=== PATIENT | female | born 1945 | race Hispanic/Latino ===

== ENCOUNTER 2017-04-25 13:16 | Emergency (ER) | payer OTHER ==
[~2017-04-25 13:16] MED LIST: CARAFATE1 GM/10 ML PO; CEFTIN500 MG PO; DITROPAN XL5 MG PO; MACROBID 100 M100 MG PO; METFORMIN HCL500 MG PO; OMEPRAZOLE40 MG PO; PREVACID 24HR15 MG; TYLENOL WITH C1 EACH PO; ZANTAC150 MG PO; ZOFRAN ODT4 MG PO
== END 2017-04-25 14:33 | disposition short-term general hospital (02) ==
LOC: ER 13:16
DX: R10.9 Unspecified abdominal pain (principal)

== ENCOUNTER 2018-02-05 16:12 | Emergency (ER) | payer OTHER ==
[~2018-02-05] VITALS: Ht 154.9 cm; Wt 68.0 kg
--- OUTSIDE RECORDS SUMMARY | 2018-02-05 16:16 | XMS REPORT ---
Author Author [facility] Address Unknown Phone Unavailable Care Team Providers Care Marketing Communications Assistant Name Role Phone Unavailable Unavailable Payers Payer Name Policy Type Policy Number Effective Date Expiration Date Problems This patient has no known problems. Allergies, Adverse Reactions, Alerts Allergy Name Allergy Type Status Severity Reaction(s) Onset Date Inactive Date Treating Clinician Comments No Known Allergies DA Active U 2012-12-06 00:00:00 Medications This patient has no known medications. Results Test Description Test Time Test Comments Text Results Atomic Results Result Comments SCR MAMM BILATERAL BREANA CAD DIGITAL 2018-01-17 11:02:49 - SCR MAMM BILATERAL BREANA CAD DIGITALBILATERAL DIGITAL SCREENING MAMMOGRAM 3D/2D WITH CAD: 01/17/2018CLINICAL: Asymptomatic. Digital breast tomosynthesis was performed in addition to routine CC and MLO views. Current mammographic images were evaluated by either a [employer] M-Vu or a [employer] ImageChecker CAD (computer aided detection system). Comparison is made to exams dated 01/14/2017 mammogram, mammogram, and 12/31/2014 mammogram - [facility]. The tissue of both breasts is heterogeneously dense. This may lower the sensitivity of mammography. There is a benign calcification in both breasts. There also is a benign density in the right breast. Additionally, there are benign densities in the left breast. No suspicious mass, architectural distortion, malignant type calcification, or lymph node abnormality detected. Breast architecture is stable compared to prior exams.IMPRESSION: BENIGNThere is no mammographic evidence of malignancy. Resume annual screening mammography in one year. Braeden Ralph M.D. ss/mic:01/17/2018 11:02:49 Insect Control Aide: Anna Marie ALDANA, [facility] sent: BIRADS 1-2 Normal Mammogram BI-RADS: 2 Benign
[2018-02-05 16:41] LABS: BASOPHILS % 0.3 % (0.0-1.0); EOSINOPHILS # (AUTO) 0.2 (0.0-0.4); EOSINOPHILS % 2.5 % (0.0-6.0); HEMATOCRIT 40.8 % (34.2-44.1); HEMOGLOBIN 14.3 g/dL (12.0-16.0); LYMPHOCYTES # (AUTO) 3.3 (1.0-3.2); LYMPHOCYTES % 37.9 % (18.0-39.1); MEAN CORPUSCULAR HEMOGLOBIN 31.9 pg (28-32); MEAN CORPUSCULAR VOLUME 91.1 fL (81-99); MONOCYTES # (AUTO) 0.7 (0.2-0.8); MONOCYTES % 7.6 % (4.4-11.3); NEUTROPHILS # (AUTO) 4.5 (2.1-6.9); NEUTROPHILS % 51.2 % (38.7-80.0); PLATELET COUNT 189 x10e3/uL (140-360); RED BLOOD COUNT 4.48 x10e6/uL (3.6-5.1); RED CELL DISTRIBUTION WIDTH 12.7 % (11.7-14.4)
[2018-02-05 16:47] LABS: INR 0.85; PARTIAL THROMBOPLASTIN TIME 23.2 seconds (23.8-35.5); PROTHROMBIN TIME 12.4 seconds (11.9-14.5)
[2018-02-05 16:56] LABS: ALANINE AMINOTRANSFERASE 35 IU/L (0-55); ALBUMIN 3.9 g/dL (3.5-5.0); ALKALINE PHOSPHATASE 76 IU/L (40-150); ANION GAP 17.7 mmol/L (8-16); BLOOD UREA NITROGEN 20 mg/dL (7-26); BUN/CREATININE RATIO 27 (6-25); CALCIUM 9.9 mg/dL (8.4-10.2); CARBON DIOXIDE 21 mmol/L (22-29); CHLORIDE 106 mmol/L (98-107); CREATINE KINASE 45 IU/L (29-168); CREATININE, SERUM 0.75 mg/dL (0.57-1.11); EST GLOMERULAR FILTRATION RATE > 60 ML/MIN (60-); GLUCOSE 123 mg/dL (74-118); POTASSIUM 3.7 mmol/L (3.5-5.1); SODIUM 141 mmol/L (136-145)
[2018-02-05 17:23] LABS: BILIRUBIN,URINE NEGATIVE (NEGATIVE); CLARITY,URINE CLEAR (CLEAR); COLOR,URINE YELLOW (YELLOW); KETONES,URINE NEGATIVE (NEGATIVE); LEUKOCYTE ESTERASE ,URINE NEGATIVE (NEGATIVE); NITRITE,URINE NEGATIVE (NEGATIVE); PROTEIN,URINE DIPSTICK NEGATIVE (NEGATIVE); URINE UROBILINOGEN 1 mg/dL (0.2 - 1)
[2018-02-05 17:35] LABS: BACTERIA,URINE FEW /HPF; EPITHELIAL CELLS,URINE FEW /LPF
[2018-02-05 18:48] LABS: AMYLASE 37 U/L (25-125); LIPASE 23 U/L (8-78)
--- NOTE | 2018-02-05 19:41 | Diagnostic Imaging Report ---
EXAM: CT Abdomen and Pelvis WITH contrast INDICATION: Pain COMPARISON: 08/23/2016 CT, no report available TECHNIQUE: Abdomen and Pelvis was scanned utilizing a multidetector helical scanner after administration of IV contrast. Coronal and sagittal reformations were obtained. IV CONTRAST: 100 mL Isovue-370 COMPLICATIONS: None RADIATION DOSE: Total DLP:724 mGy*cm Estimated effective dose: (DLP x 0.015 x size factor) mSv CTDIvol has been reviewed. It is below the limits set by the Radiation Protocol Committee (RPC). Appropriate CT dose reduction techniques were utilized. FINDINGS: Abdomen: Lung Bases: No acute findings. Solid Organs: Cholecystectomy clips. Mild to moderate hepatic steatosis. Focal 16mm area of enhancement central liver unchanged, likely flash filled hemangioma. No acute findings adrenals, kidneys, spleen, splenule, and pancreas. Upper GI Tract: Decompressed stomach limits evaluation. No small bowel obstructive changes. Small hiatal hernia. Vascularity: No aortic aneurysm. Mild vascular calcifications. Lymph Nodes: No suspicious adenopathy. Other: No ventral wall hernia. Pelvis: Bladder: Unremarkable. Other: Uterus absent. Colon: Diverticulosis predominantly involving sigmoid colon with no CT evidence of diverticulitis. Postsurgical changes right colon. Bones: No acute findings. IMPRESSION: 1. Hepatic steatosis. 2. Diverticulosis. 3. Small hiatal hernia. Signed by: Dr. Edgardo Nunes MD on 02/05/2018 7:37 PM
--- NOTE | 2018-02-05 19:44 | Diagnostic Imaging Report ---
EXAM: XR CHEST 1 VIEW DATE: 02/05/2018 4:30 PM INDICATION: Pain COMPARISON: None FINDINGS: Lines and Tubes: None Heart and Mediastinum: No acute cardiomediastinal findings. Lungs and Pleura: No significant pleural effusion, pneumothorax, or focal consolidation. Bones and Soft Tissues: No acute findings. IMPRESSION: 1. No acute cardiopulmonary findings. Signed by: Dr. Edgardo Nunes MD on 02/05/2018 7:40 PM
[2018-02-05] MEDS ORDERED: IOPAMIDOL 370 MG/ML 200 ML INFUS..BTL INJ ONE (20:43)
[2018-02-05] MEDS ORDERED: SODIUM CHLORIDE 0.9% 50ML 50 ML ONE (20:43)
[2018-02-05 21:08] VITALS: BP 132/87
== END 2018-02-05 21:21 | disposition home or self-care (01) ==
LOC: ER 16:12
DX: R10.13 Epigastric pain (principal); R10.33 Periumbilical pain; K21.9 Gastro-esophageal reflux disease without esophagitis; E11.9 Type 2 diabetes mellitus without complications; E78.5 Hyperlipidemia, unspecified
CPT/HCPCS: 36415; 71045; 74177; 80053; 81001; 82150; 82550; 82553; 82948; 83690; 83880; 84484; 85025; 85610; 85730; 93005; 99284; Q9967

== ENCOUNTER → 2018-06-05 | Day surgery (SDC) | payer MEDICARE ==
[2018-05-31 13:23] LABS: BASOPHILS % 0.2 % (0.0-1.0); EOSINOPHILS # (AUTO) 0.2 (0.0-0.4); EOSINOPHILS % 2.1 % (0.0-6.0); HEMATOCRIT 42.6 % (34.2-44.1); HEMOGLOBIN 14.2 g/dL (12.0-16.0); LYMPHOCYTES # (AUTO) 3.6 (1.0-3.2); LYMPHOCYTES % 38.9 % (18.0-39.1); MEAN CORPUSCULAR HEMOGLOBIN 31.1 pg (28-32); MEAN CORPUSCULAR HGB CONC 33.3 g/dL (31-35); MEAN CORPUSCULAR VOLUME 93.4 fL (81-99); MONOCYTES # (AUTO) 0.6 (0.2-0.8); MONOCYTES % 6.6 % (4.4-11.3); NEUTROPHILS # (AUTO) 4.7 (2.1-6.9); NEUTROPHILS % 51.8 % (38.7-80.0); PLATELET COUNT 182 x10e3/uL (140-360); RED BLOOD COUNT 4.56 x10e6/uL (3.6-5.1); RED CELL DISTRIBUTION WIDTH 12.9 % (11.7-14.4)
[2018-05-31 13:50] LABS: ANION GAP 12.2 mmol/L (8-16); BLOOD UREA NITROGEN 32 mg/dL (7-26); BUN/CREATININE RATIO 46 (6-25); CALCIUM 9.3 mg/dL (8.4-10.2); CARBON DIOXIDE 26 mmol/L (22-29); CHLORIDE 104 mmol/L (98-107); CREATININE, SERUM 0.69 mg/dL (0.57-1.11); EST GLOMERULAR FILTRATION RATE > 60 ML/MIN (60-); GLUCOSE 108 mg/dL (74-118); POTASSIUM 4.2 mmol/L (3.5-5.1); SODIUM 138 mmol/L (136-145)
[~2018-06-05] MED LIST changes: +BUPIVACAINE HCL 0.5% INJ 30 ML VIAL INJ ONE; +CEFAZOLIN SOD 1 GM/NS 50ML 50 ML IV ONE; +CRESTOR10 MG; +DEXAMETHASONE SOD PHOS INJ 4 MG/ML VIAL ONE; +FENTANYL CITRATE/PF 100MCG/2 ML INJ ONE; +LIDOCAINE HCL 2% LOCAL INJ 5 ML SDV VIAL INJ ONE; +LISINOPRIL10 MG PO; +MUPIROCIN 2% OINT 22 GM TUBE ONE; +OMEPRAZOLE40 MG; +ONDANSETRON HCL INJ 2MG/ML 2ML 2 MG/ML VIAL ONE; +PROPOFOL IV EMULSION 10 MG/ML 20 ML VIAL ONE; +SEVOFLURANE INHAL SOLN 250 ML PEN BTL ONE; +ZEGERID 40 MG1 EACH
--- OUTSIDE RECORDS SUMMARY | 2018-06-05 05:40 | XMS REPORT | Continuity of Care Document ---
Author Author [facility] Address Unknown Phone Unavailable Problems Problem Status Onset Date Classification Date Reported Comments Source Obstructive uropathy Active 10/24/2014 Problem 02/06/2018 [facility] Ureterolithiasis Active 10/24/2014 Problem 02/06/2018 [facility] Bronchitis Active Problem 02/06/2018 [facility] Headache Active Problem 02/06/2018 [facility] Medications Medication Details Route Status Patient Instructions Ordering Provider Order Date Source Sucralfate (Carafate) 1 Gm/10 Ml Oral.susp, 1 Gm Oral Before Meals And At Bedtime Active 08/23/2016 [facility] Nitrofurantoin Monohyd/M-Cryst (Macrobid 100 Mg Capsule) 100 Mg Capsule, 1 Cap Oral Twice A Day Active 04/22/2016 [facility] Ranitidine Hcl (Zantac) 150 Mg Tablet, 150 Mg Oral Twice A Day Active 04/22/2016 [facility] Acetaminophen With Codeine (Tylenol With Codeine #3 Tablet) 1 Each Tablet, 300 Mg Oral Every 6 Hours for Pain Active 11/08/2014 [facility] Cefuroxime Axetil (Ceftin) 500 Mg Tablet, 500 Mg Oral Twice A Day Active 11/08/2014 [facility] Oxybutynin Chloride (Ditropan Xl) 5 Mg Tab.er.24, 10 Mg Oral Daily Active 11/08/2014 [facility] Omeprazole 40 Mg Capsule.dr Daily Active [facility] Allergies, Adverse Reactions, Alerts Substance Category Reaction Severity Reaction type Status Date Reported Comments Source Immunizations Immunization Date Given Site Status Last Updated Comments Source Results Order Name Results Value Reference Range Date Interpretation Comments Source Capillary blood glucose measurement by glucometer (mass/volume) 111 70 - 120 02/05/2018 [facility] Prothrombin time (PT) in platelet poor plasma by coagulation assay 12.4 11.9 - 14.5 02/05/2018 [facility] INR in Platelet poor plasma by Coagulation assay 0.85 02/05/2018 [facility] Activated partial thromboplastin time (aPTT) in platelet poor plasma bycoagulation assay 23.2 23.8 - 35.5 02/05/2018 [facility] Urine color determination YELLOW YELLOW 02/05/2018 [facility] Urine clarity CLEAR CLEAR 02/05/2018 [facility] Specific gravity of Urine by Test strip 1.020 1.010 - 1.025 02/05/2018 [facility] Urine pH measurement by automated test strip 6 5 - 7 02/05/2018 [facility] Urine leukocyte esterase detection by dipstick NEGATIVE NEGATIVE 02/05/2018 [facility] Urine nitrite detection NEGATIVE NEGATIVE 02/05/2018 [facility] Urine protein measurement by test strip (mass/volume) NEGATIVE NEGATIVE 02/05/2018 [facility] Urine glucose detection NEGATIVE NEGATIVE 02/05/2018 [facility] Urine ketones detection by automated test strip NEGATIVE NEGATIVE 02/05/2018 [facility] Urine urobilinogen measurement by test strip (mass/volume) 1 0.2 - 1 02/05/2018 [facility] Urine total bilirubin measurement (mass/volume) NEGATIVE NEGATIVE 02/05/2018 [facility] Urine erythrocytes detection NEGATIVE NEGATIVE 02/05/2018 [facility] Automated urine sediment leukocyte count by microscopy (number/high power field) NONE 0 - 5 02/05/2018 [facility] Erythrocytes detection in urine sediment by light microscopy NONE 0 - 5 02/05/2018 [facility] Bacteria detection in urine sediment by light microscopy FEW NONE 02/05/2018 [facility] Epithelial cells detection in urine sediment by light microscopy FEW NONE 02/05/2018 [facility] Blood leukocytes automated count (number/volume) 8.73 4.8 - 10.8 02/05/2018 [facility] Blood erythrocytes automated count (number/volume) 4.48 3.6 - 5.1 02/05/2018 [facility] Blood hemoglobin measurement (moles/volume) 14.3 12.0 - 16.0 02/05/2018 [facility] Automated blood hematocrit (volume fraction) 40.8 34.2 - 44.1 02/05/2018 [facility] Automated erythrocyte mean corpuscular volume 91.1 81 - 99 02/05/2018 [facility] Automated erythrocyte mean corpuscular hemoglobin (mass per erythrocyte) 31.9 28 - 32 02/05/2018 [facility] Automated erythrocyte mean corpuscular hemoglobin concentration measurement (mass/volume) 35.0 31 - 35 02/05/2018 [facility] RDW BldCo-Rto 12.7 11.7 - 14.4 02/05/2018 [facility] Automated blood platelet count (count/volume) 189 140 - 360 02/05/2018 [facility] Automated blood segmented neutrophil count as percentage of total leukocytes 51.2 38.7 - 80.0 02/05/2018 [facility] Automated blood lymphocyte count as percentage ot total leukocytes 37.9 18.0 - 39.1 02/05/2018 [facility] Automated blood monocyte count as percentage of total leukocytes 7.6 4.4 - 11.3 02/05/2018 [facility] Automated blood eosinophil count as percentage of total leukocytes 2.5 0.0 - 6.0 02/05/2018 [facility] Automated blood basophil count as percentage of total leukocytes 0.3 0.0 - 1.0 02/05/2018 [facility] IM GRANULOCYTES % 0.5 0.0 - 1.0 02/05/2018 [facility] Automated blood neutrophil count 4.5 2.1 - 6.9 02/05/2018 [facility] Blood lymphocytes count (number/volume) 3.3 1.0 - 3.2 02/05/2018 [facility] Blood monocytes automated count (number/volume) 0.7 0.2 - 0.8 02/05/2018 [facility] Automated blood eosinophil count 0.2 0.0 - 0.4 02/05/2018 [facility] Automated blood basophil count (count/volume) 0.0 0.0 - 0.1 02/05/2018 [facility] Absolute Immature Granulocyte (auto 0.04 0 - 0.1 02/05/2018 [facility] Serum or plasma sodium measurement (moles/volume) 141 136 - 145 02/05/2018 [facility] Serum or plasma potassium measurement (moles/volume) 3.7 3.5 - 5.1 02/05/2018 [facility] Serum or plasma chloride measurement (moles/volume) 106 98 - 107 02/05/2018 [facility] Serum or plasma carbon dioxide, total measurement (moles/volume) 21 22 - 29 02/05/2018 [facility] Serum or plasma anion gap 17.7 8 - 16 02/05/2018 [facility] Serum or plasma urea nitrogen measurement (mass/volume) 20 7 - 26 02/05/2018 [facility] Serum or plasma creatinine measurement (mass/volume) 0.75 0.57 - 1.11 02/05/2018 [facility] Serum or plasma urea nitrogen/creatinine mass ratio 27 6 - 25 02/05/2018 [facility] Estimated glomerular filtration rate (GFR) determination > 60 60 02/05/2018 [facility] Glucose measurement 123 74 - 118 02/05/2018 [facility] Serum or plasma calcium measurement (mass/volume) 9.9 8.4 - 10.2 02/05/2018 [facility] Serum or plasma total bilirubin measurement (mass/volume) 0.3 0.2 - 1.2 02/05/2018 [facility] Aspartate Amino Transf (AST/SGOT) 29 5 - 34 02/05/2018 [facility] Serum or plasma alanine aminotransferase measurement (enzymatic activity/volume) 35 0 - 55 02/05/2018 [facility] Serum or plasma protein measurement (mass/volume) 7.9 6.5 - 8.1 02/05/2018 [facility] Serum or plasma albumin measurement (mass/volume) 3.9 3.5 - 5.0 02/05/2018 [facility] Plasma globulin measurement (mass/volume) 4.0 2.3 - 3.5 02/05/2018 [facility] Serum or plasma albumin/globulin mass ratio 1.0 0.8 - 2.0 02/05/2018 [facility] Serum or plasma alkaline phosphatase measurement (enzymatic activity/volume) 76 40 - 150 02/05/2018 [facility] BNP Bld-mCnc < 10.0 0 - 100 02/05/2018 [facility] Serum or plasma creatine kinase measurement (enzymatic activity/volume) 45 29 - 168 02/05/2018 [facility] Serum or plasma creatine kinase MB measurement (mass/volume) 0.60 0 - 5.0 02/05/2018 [facility] Troponin I measurement by highly sensitive enzyme immunoassay < 0.001 0 - 0.300 02/05/2018 [facility] Serum or plasma amylase measurement (enzymatic activity/volume) 37 25 - 125 02/05/2018 [facility] Serum or plasma lipase measurement (enzymatic activity/volume) 23 8 - 78 02/05/2018 [facility] Vital Signs Vital Sign Value Date Comments Source Encounters Location Location Details Encounter Type Encounter Number Reason For Visit Attending Provider ADM Date DC Date Status Source Departed Emergency Room [id number] JIM GONZALEZ MD 04/25/2017 04/25/2017 [facility] Departed Emergency Room [id number] QASIM BARAHONA MD 02/05/2018 02/05/2018 [facility] Procedures Procedure Code Date Perfomer Comments Source Computed tomography of abdomen and pelvis with contrast [id number] 02/05/2018 [place] [facility]
--- NOTE | 2018-06-05 07:16 | NUR ---
SPIRITUAL CARE - Pre-Surgery Assessment: Pt in bed. Pt's daughter at bedside. Pt identifies as Christianity. Pt reported supportive attention from family and friends. Intervention: I provided pastoral presence, hospitality, sympathetic listening, and prayer. I acquainted pt with availability of information and data architect analyst while hospitalized. Outcome: Pt expressed appreciation for visit. No need for follow up indicated at this time. EDUARDA SIDHU Cafeteria Manager Spiritual Care Department O: [phone] Pager: [phone] ([phone] number calling from)
[2018-06-05 09:00] VITALS: BP 126/68
--- NOTE | 2018-06-05 17:28 | Operative Report ---
DATE OF PROCEDURE: 06/05/2018 SURGEON: Miguel Carter MD PREOPERATIVE DIAGNOSIS: Right hand carpal tunnel syndrome. POSTOPERATIVE DIAGNOSES: 1. Right hand carpal tunnel syndrome. 2. Flexor tenosynovitis right wrist. PROCEDURE: 1. Right hand open carpal tunnel release. 2. Flexor tenosynovectomy right wrist. ANESTHESIA: General. HISTORY: The patient is a 72-year-old with EMG-proven right hand carpal tunnel syndrome. Risks, benefits and alternatives of treatment were discussed with the patient. The patient is prepared to undergo the procedure as outlined. DESCRIPTION OF PROCEDURE: The patient was brought to the operating theater. After the induction of adequate general inhalation anesthesia, the patient was prepped and draped in the supine position. A time out was performed by the entire operating room team. A 2.5 cm incision was marked out in the intrathenar space. The right upper extremity was exsanguinated, and a tourniquet was inflated to a pressure of 250 mmHg. The incision was made through the skin and subcutaneous tissues and all venous tributaries were controlled with bipolar cautery. The incision was deepened through the palmar fascia until the transverse carpal ligament was identified. The ligament was sharply sectioned, taking care to protect and preserve the median nerve underlying it. After the complete width of the ligament had been transected, the distal volar forearm fascia was divided under direct view. Proliferative flexor tenosynovium was noticed to encompass the median nerve and this was radically excised. After performing this maneuver, the nerve was noted to lie adequately decompressed. The wound was copiously irrigated with bacteriostatic saline, closed with 5-0 nylon in an interrupted horizontal mattress fashion. A Marcaine field block was performed at the operative site. Tourniquet was deflated. All of the fingers pinked up nicely and a sterile bulking conforming bandage was applied to the hand and the wrist. A fiberglass splint was fashioned to maintain the wrist in a modest amount of extension. This was held in place with a loosely wrapped Luisito wrap. The patient tolerated the procedure well and was brought to the recovery room in satisfactory condition and discharged with a postoperative instruction sheet as well as a followup appointment. Miguel Carter MD ER/MODL /[id number]
== END | disposition home or self-care (01) ==
LOC: OR 05:30
PROVIDERS: ATTEND Plastic Surgery
DX: G56.01 Carpal tunnel syndrome, right upper limb (principal); M65.841 Other synovitis and tenosynovitis, right hand; E11.9 Type 2 diabetes mellitus without complications; K21.9 Gastro-esophageal reflux disease without esophagitis; Z88.6 Allergy status to analgesic agent; Z01.810 Encounter for preprocedural cardiovascular examination; Z01.812 Encounter for preprocedural laboratory examination
CPT/HCPCS: 25115; 36415 ×2; 80048; 82948; 85025; 93005 ×2; J0690; J1100; J2001; J2405; J2704

== ENCOUNTER 2018-07-04 04:52 | Emergency (ER) | payer MEDICARE ==
[~2018-07-04] VITALS: Ht 154.9 cm; Wt 68.0 kg
[~2018-07-04 04:52] MED LIST changes: -BUPIVACAINE HCL 0.5% INJ 30 ML VIAL INJ ONE; -CEFAZOLIN SOD 1 GM/NS 50ML 50 ML IV ONE; -DEXAMETHASONE SOD PHOS INJ 4 MG/ML VIAL ONE; -FENTANYL CITRATE/PF 100MCG/2 ML INJ ONE; -LIDOCAINE HCL 2% LOCAL INJ 5 ML SDV VIAL INJ ONE; -MUPIROCIN 2% OINT 22 GM TUBE ONE; -ONDANSETRON HCL INJ 2MG/ML 2ML 2 MG/ML VIAL ONE; -PROPOFOL IV EMULSION 10 MG/ML 20 ML VIAL ONE; -SEVOFLURANE INHAL SOLN 250 ML PEN BTL ONE
--- NOTE | 2018-07-04 05:49 | Diagnostic Imaging Report ---
Wrist Complete Left CPT Code: 73708 Indication: Fall Technique: Three portable views of the left wrist obtained. Comparison: None Findings: The osseous structures are diffusely demineralized. The distal radius and ulna are intact. There is overlap of the scaphoid and the capitate. An underlying fracture cannot be excluded. There is soft tissue swelling of the dorsum of the wrist. No radio-opaque foreign bodies in the soft tissues. IMPRESSION: A fracture of the capitate cannot be excluded. Recommend scaphoid view for further characterization. Signed by: Dr. Luis Manuel Joseph MD on 07/04/2018 5:45 AM
--- NOTE | 2018-07-04 06:36 | Diagnostic Imaging Report ---
Wrist limited left CPT code: 54095 Indication: Trauma Technique: Two portable scaphoid views of the left wrist obtained Comparison: Wrist x-rays 0513 hours Findings: The visualized portions of the distal radius and ulna are intact. There are cysts in the capitate and lunate. No evidence of fracture. No significant degenerative changes. Visualized bones of the digits appear intact. IMPRESSION: No evidence of displaced fracture or dislocation involving the left wrist. Signed by: Dr. Luis Manuel Joseph MD on 07/04/2018 6:33 AM
== END 2018-07-04 06:43 | disposition home or self-care (01) ==
LOC: ER 04:52
DX: S63.522A Sprain of radiocarpal joint of left wrist, initial encounter (principal); V19.9XXA Pedal cyclist (driver) (passenger) injured in unspecified traffic accident, initial encounter; Y93.55 Activity, bike riding; Y92.488 Other paved roadways as the place of occurrence of the external cause; E11.9 Type 2 diabetes mellitus without complications; K21.9 Gastro-esophageal reflux disease without esophagitis; E78.5 Hyperlipidemia, unspecified
CPT/HCPCS: 99283

== ENCOUNTER 2018-11-16 20:23 | Observation (INO) | payer MEDICARE, OTHER ==
[~2018-11-16] VITALS: Ht 154.9 cm; Wt 72.3 kg
[~2018-11-16 20:23] MED LIST changes: -OMEPRAZOLE40 MG
--- OUTSIDE RECORDS SUMMARY | 2018-11-16 20:27 | XMS REPORT | Continuity of Care Document ---
Author Author [facility] [employer] Address Unknown Phone Unavailable Care Team Providers Care Spring Tacker Name Role Phone [facility] Information Exchange Unavailable Unavailable Problems Problem Status Onset Date Classification Date Reported Comments Source Obstructive uropathy Active 10/24/2014 Problem 07/04/2018 [facility] Calculus of ureter Active 10/24/2014 Problem 07/04/2018 [facility] Bronchitis Active Problem 07/04/2018 [facility] Headache Active Problem 07/04/2018 [facility] Medications Medication Details Route Status Patient Instructions Ordering Provider Order Date Source Lisinopril 10 Mg Tablet, 20 Mg Oral Daily Active 05/31/2018 [facility] Omeprazole 40 Mg Capsule.dr, 40 Mg Oral Daily Active 05/31/2018 [facility] Omeprazole/Sodium Bicarbonate (Zegerid 40 Mg Capsule) 1 Each Capsule, Active 05/31/2018 [facility] Rosuvastatin Calcium (Crestor) 10 Mg Tab, Active 05/31/2018 [facility] Sucralfate (Carafate) 1 Gm/10 Ml Oral.susp, 1 Gm Oral Before Meals And At Bedtime Active 08/23/2016 [facility] Nitrofurantoin Monohyd/M-Cryst (Macrobid 100 Mg Capsule) 100 Mg Capsule, 1 Cap Oral Twice A Day Active 04/22/2016 [facility] Ranitidine Hcl (Zantac) 150 Mg Tablet, 150 Mg Oral Twice A Day Active 04/22/2016 [facility] Acetaminophen With Codeine (Tylenol With Codeine #3 Tablet) 1 Each Tablet, 300 Mg Oral Every 6 Hours for Pain Active 11/08/2014 [facility] Cefuroxime Axetil (Ceftin) 500 Mg Tablet, 500 Mg Oral Twice A Day Active 11/08/2014 [facility] Oxybutynin Chloride (Ditropan Xl) 5 Mg Tab.er.24, 10 Mg Oral Daily Active 11/08/2014 [facility] Omeprazole 40 Mg Capsule.dr Fleming [facility] Allergies, Adverse Reactions, Alerts No Known Medication Allergies Immunizations No Data Provided for This Section Results Order Name Results Value Reference Range Date Interpretation Comments Source Capillary blood glucose measurement by glucometer (mass/volume) 125 70 - 120 06/05/2018 [facility] Blood leukocytes automated count (number/volume) 9.13 4.8 - 10.8 05/31/2018 [facility] Blood erythrocytes automated count (number/volume) 4.56 3.6 - 5.1 05/31/2018 [facility] Blood hemoglobin measurement (moles/volume) 14.2 12.0 - 16.0 05/31/2018 [facility] Automated blood hematocrit (volume fraction) 42.6 34.2 - 44.1 05/31/2018 [facility] Automated erythrocyte mean corpuscular volume 93.4 81 - 99 05/31/2018 [facility] Automated erythrocyte mean corpuscular hemoglobin (mass per erythrocyte) 31.1 28 - 32 05/31/2018 [facility] Automated erythrocyte mean corpuscular hemoglobin concentration measurement (mass/volume) 33.3 31 - 35 05/31/2018 [facility] RDW BldCo-Rto 12.9 11.7 - 14.4 05/31/2018 [facility] Automated blood platelet count (count/volume) 182 140 - 360 05/31/2018 [facility] Automated blood segmented neutrophil count as percentage of total leukocytes 51.8 38.7 - 80.0 05/31/2018 [facility] Automated blood lymphocyte count as percentage ot total leukocytes 38.9 18.0 - 39.1 05/31/2018 [facility] Automated blood monocyte count as percentage of total leukocytes 6.6 4.4 - 11.3 05/31/2018 [facility] Automated blood eosinophil count as percentage of total leukocytes 2.1 0.0 - 6.0 05/31/2018 [facility] Automated blood basophil count as percentage of total leukocytes 0.2 0.0 - 1.0 05/31/2018 [facility] IM GRANULOCYTES % 0.4 0.0 - 1.0 05/31/2018 [facility] Automated blood neutrophil count 4.7 2.1 - 6.9 05/31/2018 [facility] Blood lymphocytes count (number/volume) 3.6 1.0 - 3.2 05/31/2018 [facility] Blood monocytes automated count (number/volume) 0.6 0.2 - 0.8 05/31/2018 [facility] Automated blood eosinophil count 0.2 0.0 - 0.4 05/31/2018 [facility] Automated blood basophil count (count/volume) 0.0 0.0 - 0.1 05/31/2018 [facility] Absolute Immature Granulocyte (auto 0.04 0 - 0.1 05/31/2018 [facility] Serum or plasma sodium measurement (moles/volume) 138 136 - 145 05/31/2018 [facility] Serum or plasma potassium measurement (moles/volume) 4.2 3.5 - 5.1 05/31/2018 [facility] Serum or plasma chloride measurement (moles/volume) 104 98 - 107 05/31/2018 [facility] Serum or plasma carbon dioxide, total measurement (moles/volume) 26 22 - 29 05/31/2018 [facility] Serum or plasma anion gap 12.2 8 - 16 05/31/2018 [facility] Serum or plasma urea nitrogen measurement (mass/volume) 32 7 - 26 05/31/2018 [facility] Serum or plasma creatinine measurement (mass/volume) 0.69 0.57 - 1.11 05/31/2018 [facility] Serum or plasma urea nitrogen/creatinine mass ratio 46 6 - 25 05/31/2018 [facility] Estimated glomerular filtration rate (GFR) determination > 60 60 05/31/2018 [facility] Glucose measurement 108 74 - 118 05/31/2018 [facility] Serum or plasma calcium measurement (mass/volume) 9.3 8.4 - 10.2 05/31/2018 [facility] Capillary blood glucose measurement by glucometer (mass/volume) 111 70 - 120 02/05/2018 [facility] Prothrombin time (PT) in platelet poor plasma by coagulation assay 12.4 11.9 - 14.5 02/05/2018 [facility] INR in Platelet poor plasma by Coagulation assay 0.85 02/05/2018 [facility] Activated partial thromboplastin time (aPTT) in platelet poor plasma bycoagulation assay 23.2 23.8 - 35.5 02/05/2018 [facility] Prothrombin time (PT) in platelet poor plasma by coagulation assay 12.4 11.9 - 14.5 02/05/2018 [facility] INR in Platelet poor plasma by Coagulation assay 0.85 02/05/2018 [facility] Activated partial thromboplastin time (aPTT) in platelet poor plasma bycoagulation assay 23.2 23.8 - 35.5 02/05/2018 [facility] Urine color determination YELLOW YELLOW 02/05/2018 [facility] Urine clarity CLEAR CLEAR 02/05/2018 [facility] Specific gravity of Urine by Test strip 1.020 1.010 - 1.025 02/05/2018 [facility] Urine pH measurement by automated test strip 6 5 - 7 02/05/2018 [facility] Urine leukocyte esterase detection by dipstick NEGATIVE NEGATIVE 02/05/2018 [facility] Urine nitrite detection NEGATIVE NEGATIVE 02/05/2018 [facility] Urine protein measurement by test strip (mass/volume) NEGATIVE NEGATIVE 02/05/2018 [facility] Urine glucose detection NEGATIVE NEGATIVE 02/05/2018 [facility] Urine ketones detection by automated test strip NEGATIVE NEGATIVE 02/05/2018 [facility] Urine urobilinogen measurement by test strip (mass/volume) 1 0.2 - 1 02/05/2018 [facility] Urine total bilirubin measurement (mass/volume) NEGATIVE NEGATIVE 02/05/2018 [facility] Urine erythrocytes detection NEGATIVE NEGATIVE 02/05/2018 [facility] Automated urine sediment leukocyte count by microscopy (number/high power field) NONE 0 - 5 02/05/2018 [facility] Erythrocytes detection in urine sediment by light microscopy NONE 0 - 5 02/05/2018 [facility] Bacteria detection in urine sediment by light microscopy FEW NONE 02/05/2018 [facility] Epithelial cells detection in urine sediment by light microscopy FEW NONE 02/05/2018 [facility] Urine color determination YELLOW YELLOW 02/05/2018 [facility] Urine clarity CLEAR CLEAR 02/05/2018 [facility] Specific gravity of Urine by Test strip 1.020 1.010 - 1.025 02/05/2018 [facility] Urine pH measurement by automated test strip 6 5 - 7 02/05/2018 [facility] Urine leukocyte esterase detection by dipstick NEGATIVE NEGATIVE 02/05/2018 [facility] Urine nitrite detection NEGATIVE NEGATIVE 02/05/2018 [facility] Urine protein measurement by test strip (mass/volume) NEGATIVE NEGATIVE 02/05/2018 [facility] Urine glucose detection NEGATIVE NEGATIVE 02/05/2018 [facility] Urine ketones detection by automated test strip NEGATIVE NEGATIVE 02/05/2018 [facility] Urine urobilinogen measurement by test strip (mass/volume) 1 0.2 - 1 02/05/2018 [facility] Urine total bilirubin measurement (mass/volume) NEGATIVE NEGATIVE 02/05/2018 [facility] Urine erythrocytes detection NEGATIVE NEGATIVE 02/05/2018 [facility] Automated urine sediment leukocyte count by microscopy (number/high power field) NONE 0 - 5 02/05/2018 [facility] Erythrocytes detection in urine sediment by light microscopy NONE 0 - 5 02/05/2018 [facility] Bacteria detection in urine sediment by light microscopy FEW NONE 02/05/2018 [facility] Epithelial cells detection in urine sediment by light microscopy FEW NONE 02/05/2018 [facility] Serum or plasma total bilirubin measurement (mass/volume) 0.3 0.2 - 1.2 02/05/2018 [facility] Aspartate Amino Transf (AST/SGOT) 29 5 - 34 02/05/2018 [facility] Serum or plasma alanine aminotransferase measurement (enzymatic activity/volume) 35 0 - 55 02/05/2018 [facility] Serum or plasma protein measurement (mass/volume) 7.9 6.5 - 8.1 02/05/2018 [facility] Serum or plasma albumin measurement (mass/volume) 3.9 3.5 - 5.0 02/05/2018 [facility] Plasma globulin measurement (mass/volume) 4.0 2.3 - 3.5 02/05/2018 [facility] Serum or plasma albumin/globulin mass ratio 1.0 0.8 - 2.0 02/05/2018 [facility] Serum or plasma alkaline phosphatase measurement (enzymatic activity/volume) 76 40 - 150 02/05/2018 [facility] BNP Bld-mCnc < 10.0 0 - 100 02/05/2018 [facility] Serum or plasma creatine kinase measurement (enzymatic activity/volume) 45 29 - 168 02/05/2018 [facility] Serum or plasma creatine kinase MB measurement (mass/volume) 0.60 0 - 5.0 02/05/2018 [facility] Troponin I measurement by highly sensitive enzyme immunoassay < 0.001 0 - 0.300 02/05/2018 [facility] Serum or plasma amylase measurement (enzymatic activity/volume) 37 25 - 125 02/05/2018 [facility] Serum or plasma lipase measurement (enzymatic activity/volume) 23 8 - 78 02/05/2018 [facility] Blood leukocytes automated count (number/volume) 8.73 4.8 - 10.8 02/05/2018 [facility] Blood erythrocytes automated count (number/volume) 4.48 3.6 - 5.1 02/05/2018 [facility] Blood hemoglobin measurement (moles/volume) 14.3 12.0 - 16.0 02/05/2018 [facility] Automated blood hematocrit (volume fraction) 40.8 34.2 - 44.1 02/05/2018 [facility] Automated erythrocyte mean corpuscular volume 91.1 81 - 99 02/05/2018 [facility] Automated erythrocyte mean corpuscular hemoglobin (mass per erythrocyte) 31.9 28 - 32 02/05/2018 [facility] Automated erythrocyte mean corpuscular hemoglobin concentration measurement (mass/volume) 35.0 31 - 35 02/05/2018 [facility] RDW BldCo-Rto 12.7 11.7 - 14.4 02/05/2018 [facility] Automated blood platelet count (count/volume) 189 140 - 360 02/05/2018 [facility] Automated blood segmented neutrophil count as percentage of total leukocytes 51.2 38.7 - 80.0 02/05/2018 [facility] Automated blood lymphocyte count as percentage ot total leukocytes 37.9 18.0 - 39.1 02/05/2018 [facility] Automated blood monocyte count as percentage of total leukocytes 7.6 4.4 - 11.3 02/05/2018 [facility] Automated blood eosinophil count as percentage of total leukocytes 2.5 0.0 - 6.0 02/05/2018 [facility] Automated blood basophil count as percentage of total leukocytes 0.3 0.0 - 1.0 02/05/2018 [facility] IM GRANULOCYTES % 0.5 0.0 - 1.0 02/05/2018 [facility] Automated blood neutrophil count 4.5 2.1 - 6.9 02/05/2018 [facility] Blood lymphocytes count (number/volume) 3.3 1.0 - 3.2 02/05/2018 [facility] Blood monocytes automated count (number/volume) 0.7 0.2 - 0.8 02/05/2018 [facility] Automated blood eosinophil count 0.2 0.0 - 0.4 02/05/2018 [facility] Serum or plasma sodium measurement (moles/volume) 141 136 - 145 02/05/2018 [facility] Serum or plasma potassium measurement (moles/volume) 3.7 3.5 - 5.1 02/05/2018 [facility] Serum or plasma chloride measurement (moles/volume) 106 98 - 107 02/05/2018 [facility] Serum or plasma carbon dioxide, total measurement (moles/volume) 21 22 - 29 02/05/2018 [facility] Serum or plasma anion gap 17.7 8 - 16 02/05/2018 [facility] Serum or plasma urea nitrogen measurement (mass/volume) 20 7 - 26 02/05/2018 [facility] Serum or plasma creatinine measurement (mass/volume) 0.75 0.57 - 1.11 02/05/2018 [facility] Serum or plasma urea nitrogen/creatinine mass ratio 27 6 - 25 02/05/2018 [facility] Estimated glomerular filtration rate (GFR) determination > 60 60 02/05/2018 [facility] Glucose measurement 123 74 - 118 02/05/2018 [facility] Serum or plasma calcium measurement (mass/volume) 9.9 8.4 - 10.2 02/05/2018 [facility] Serum or plasma total bilirubin measurement (mass/volume) 0.3 0.2 - 1.2 02/05/2018 [facility] Aspartate Amino Transf (AST/SGOT) 29 5 - 34 02/05/2018 [facility] Serum or plasma alanine aminotransferase measurement (enzymatic activity/volume) 35 0 - 55 02/05/2018 [facility] Serum or plasma protein measurement (mass/volume) 7.9 6.5 - 8.1 02/05/2018 [facility] Serum or plasma albumin measurement (mass/volume) 3.9 3.5 - 5.0 02/05/2018 [facility] Plasma globulin measurement (mass/volume) 4.0 2.3 - 3.5 02/05/2018 [facility] Serum or plasma albumin/globulin mass ratio 1.0 0.8 - 2.0 02/05/2018 [facility] Serum or plasma alkaline phosphatase measurement (enzymatic activity/volume) 76 40 - 150 02/05/2018 [facility] BNP Bld-mCnc < 10.0 0 - 100 02/05/2018 [facility] Serum or plasma creatine kinase measurement (enzymatic activity/volume) 45 29 - 168 02/05/2018 [facility] Serum or plasma creatine kinase MB measurement (mass/volume) 0.60 0 - 5.0 02/05/2018 [facility] Troponin I measurement by highly sensitive enzyme immunoassay < 0.001 0 - 0.300 02/05/2018 [facility] Serum or plasma amylase measurement (enzymatic activity/volume) 37 25 - 125 02/05/2018 [facility] Serum or plasma lipase measurement (enzymatic activity/volume) 23 8 - 78 02/05/2018 [facility] Pathology Reports No Data Provided for This Section Diagnostic Reports No Data Provided for This Section Consultation Notes No Data Provided for This Section Discharge Summaries No Data Provided for This Section History and Physicals No Data Provided for This Section Vital Signs No Data Provided for This Section Encounters Location Location Details Encounter Type Encounter Number Reason For Visit Attending Provider ADM Date DC Date Status Source Departed Emergency Room [id number] JIM GONZALEZ MD 04/25/2017 04/25/2017 [facility] Departed Emergency Room [id number] QASIM BARAHONA MD 02/05/2018 02/05/2018 [facility] Registered [facility] [id number] DEVON GARCIA MD 06/05/2018 [facility] Departed Emergency Room [id number] LOLA LUIS MD 07/04/2018 07/04/2018 [facility] Procedures Procedure Code Date Perfomer Comments Source REMOVE WRIST/FOREARM LESION [id number] 06/05/2018 [facility] Computed tomography of abdomen and pelvis with contrast [id number] 02/05/2018 [facility] Assessment and Plan No Data Provided for This Section Plan of Care Plan of Care Date Source Discharge Date 07/04/18 6:43am Disposition HOME, SELF-CARE Condition at Discharge Stable Instructions/Education Provided Sprains - Wrist Forms Provided Work/School Excuse Prescriptions See Medication Section Additional Instructions/Education Take Ibuprofen or Tylenol for pain as directed Follow up with primary care physician 07/04/2018 [facility] Discharge Date 02/05/18 9:21pm Disposition HOME, SELF-CARE Condition at Discharge Stable Instructions/Education Provided Abdominal Pain - Adult Hiatal Hernia Forms Provided Work/School Excuse Prescriptions See Medication Section Referrals GIFTY CRUM MD (NS) Address: [address] [place] [address] [phone] Additional Instructions/Education 1. FOLLOW UP WITH YOUR DOCTOR NEEDED. REASON FOR REFERRAL:EVALUATION AND TREATMENT. 2. RETURN TO ED IF SYMPTOMS WORSEN OR HAVE ANY CONCERNS. 3. DIAGNOSIS: GERD. 02/05/2018 [facility] Social History Social History Date Source Social History Problem Response Recorded Date/Time Onset Date Status Hx Psychiatric Problems No 10/24/2014 11:47pm Not Applicable Not Applicable Hx Eating Disorder No 10/24/2014 11:47pm Not Applicable Not Applicable Hx Substance Use Disorder No 10/24/2014 11:47pm Not Applicable Not Applicable Hx Depression No 10/24/2014 11:47pm Not Applicable Not Applicable Hx Alcohol Use Y - OCCASSIONAL 10/24/2014 11:47pm Not Applicable Not Applicable Hx Substance Use Treatment No 10/24/2014 11:47pm Not Applicable Not Applicable Hx Physical Abuse No 10/24/2014 11:47pm Not Applicable Not Applicable Smoking Status Start Date Stop Date Never Smoker 07/04/2018 [facility] Family History Value Date Source Relationship Condition Age at Onset Recorded Date/Time 09 Brother Family history of coronary artery disease Not Recorded 10/25/2014 12:51am 07/04/2018 [facility] Relationship Condition Age at Onset Recorded Date/Time 09 Brother Family history of coronary artery disease Not Recorded 10/25/2014 12:51am 02/05/2018 [facility] Advance Directives Order Name Results Value Date Source Advance Directives Advance Directives Directive Response Recorded Date/Time Does the patient have an advance directive? No 10/24/14 11:47pm Do you have a Directive to Physician? No 07/04/18 5:57am Do you have a Medical Power of Counter Intelligence Technician? No 07/04/18 5:57am Do you have an out of hospital Do Not Resuscitate Order? No 07/04/18 5:57am Do you have any special needs we should be aware of? No 07/04/18 5:57am Do you have a support person here with you today? No 07/04/18 5:57am Did patient receive Notice of Privacy Practices? Yes 07/04/18 5:57am Did patient receive patient rights and responsibilities? Yes 07/04/18 5:57am 07/04/2018 [facility] Advance Directives Advance Directives Directive Response Recorded Date/Time Does the patient have an advance directive? No 10/24/14 11:47pm Do you have a Directive to Physician? No 02/05/18 6:07pm Do you have a Medical Power of Counter Intelligence Technician? No 02/05/18 6:07pm Do you have an out of hospital Do Not Resuscitate Order? No 02/05/18 6:07pm Do you have any special needs we should be aware of? No 02/05/18 6:07pm Do you have a support person here with you today? No 02/05/18 6:07pm Did patient receive Notice of Privacy Practices? Yes 02/05/18 6:07pm Did patient receive patient rights and responsibilities? Yes 02/05/18 6:07pm 02/05/2018 [facility] Functional Status No Data Provided for This Section
[2018-11-16] MEDS ORDERED: ASPIRIN 81 MG CHEW TAB PO ONE ×2 (20:45→22:00)
[2018-11-16] MEDS ORDERED: MORPHINE SULFATE INJ 4 MG/ML INJ 1ML IV ONE (20:45)
[2018-11-16] MEDS ORDERED: ONDANSETRON HCL INJ 2MG/ML 2ML 2 MG/ML VIAL IV ONE (20:45)
[2018-11-16 21:18] LABS: BASOPHILS % 0.3 % (0.0-1.0); EOSINOPHILS # (AUTO) 0.2 (0.0-0.4); HEMATOCRIT 38.9 % (34.2-44.1); HEMOGLOBIN 13.5 g/dL (12.0-16.0); LYMPHOCYTES % 41.9 % (18.0-39.1); MEAN CORPUSCULAR HEMOGLOBIN 31.6 pg (28-32); MEAN CORPUSCULAR HGB CONC 34.7 g/dL (31-35); MEAN CORPUSCULAR VOLUME 91.1 fL (81-99); MONOCYTES # (AUTO) 0.6 (0.2-0.8); MONOCYTES % 8.6 % (4.4-11.3); NEUTROPHILS # (AUTO) 3.2 (2.1-6.9); NEUTROPHILS % 45.6 % (38.7-80.0); PLATELET COUNT 166 x10e3/uL (140-360); RED BLOOD COUNT 4.27 x10e6/uL (3.6-5.1)
[2018-11-16 21:32] LABS: ALANINE AMINOTRANSFERASE 26 IU/L (0-55); ALBUMIN 3.8 g/dL (3.5-5.0); ALBUMIN/GLOBULIN RATIO 1.3 (0.8-2.0); ALKALINE PHOSPHATASE 77 IU/L (40-150); ANION GAP 18.1 mmol/L (8-16); BLOOD UREA NITROGEN 26 mg/dL (7-26); BUN/CREATININE RATIO 35 (6-25); CALCIUM 9.5 mg/dL (8.4-10.2); CARBON DIOXIDE 22 mmol/L (22-29); CHLORIDE 104 mmol/L (98-107); CREATINE KINASE 38 IU/L (29-168); CREATININE, SERUM 0.75 mg/dL (0.57-1.11); EST GLOMERULAR FILTRATION RATE > 60 ML/MIN (60-); GLUCOSE 170 mg/dL (74-118); POTASSIUM 4.1 mmol/L (3.5-5.1); SODIUM 140 mmol/L (136-145)
--- NOTE | 2018-11-16 21:59 | Diagnostic Imaging Report ---
Examination: Single AP view of the chest. COMPARISON: 02/05/2018 INDICATION: Chest pain DISCUSSION: Lines/tubes: None. Lungs: The lungs are well-inflated. Patchy opacity laterally within the left lung base compatible with subsegmental atelectasis. No airspace consolidation. Pleura: There is no pleural effusion or pneumothorax. Heart and mediastinum: The heart and the mediastinum are unremarkable. Bones and soft tissues: No acute bony abnormalities. IMPRESSION: 1. Subsegmental atelectasis in the left lung base. Otherwise no acute cardiopulmonary abnormality. Signed by: Dr. Kendall Davis M.D. on 11/16/2018 9:55 PM
[2018-11-16] MEDS ORDERED: MORPHINE SULFATE 2 MG/ML SYR 1ML IV PRN (22:00)
[2018-11-16] MEDS ORDERED: MORPHINE SULFATE INJ 4 MG/ML INJ 1ML IV PRN (22:00)
[2018-11-16] MEDS ORDERED: ONDANSETRON HCL INJ 2MG/ML 2ML 2 MG/ML VIAL IV PRN (22:00)
[2018-11-17] VITALS (10 sets, daily range): BP systolic 116–156; BP diastolic 62–76
--- OUTSIDE RECORDS SUMMARY | 2018-11-17 00:21 | XMS REPORT | Continuity of Care Document ---
Author Author Perfecto Mobile Organization [facility] Address Unknown Phone Unavailable Care Team Providers Care Carbide Operator Name Role Phone [facility] Information Exchange Unavailable Unavailable Problems Problem Status Onset Date Classification Date Reported Comments Source Obstructive uropathy Active 10/24/2014 Problem 07/04/2018 [facility] Calculus of ureter Active 10/24/2014 Problem 07/04/2018 [facility] Bronchitis Active Problem 07/04/2018 [facility] Headache Active Problem 07/04/2018 [facility] Medications Medication Details Route Status Patient Instructions Ordering Provider Order Date Source Lisinopril 10 Mg Tablet, 20 Mg Oral Daily Active 05/31/2018 [facility] Omeprazole 40 Mg Capsule.dr, 40 Mg Oral Daily Active 05/31/2018 [facility] Omeprazole/Sodium Bicarbonate (Zegerid 40 Mg Capsule) 1 Each Capsule, Active 05/31/2018 [facility] Rosuvastatin Calcium (Crestor) 10 Mg Tab, Active 05/31/2018 [facility] Sucralfate (Carafate) 1 Gm/10 Ml Oral.susp, 1 Gm Oral Before Meals And At Bedtime Active 08/23/2016 [facility] Nitrofurantoin Monohyd/M-Cryst (Macrobid 100 Mg Capsule) 100 Mg Capsule, 1 Cap Oral Twice A Day Active 04/22/2016 [facility] Ranitidine Hcl (Zantac) 150 Mg Tablet, 150 Mg Oral Twice A Day Active 04/22/2016 [facility] Acetaminophen With Codeine (Tylenol With Codeine #3 Tablet) 1 Each Tablet, 300 Mg Oral Every 6 Hours for Pain Active 11/08/2014 [facility] Cefuroxime Axetil (Ceftin) 500 Mg Tablet, 500 Mg Oral Twice A Day Active 11/08/2014 [facility] Oxybutynin Chloride (Ditropan Xl) 5 Mg Tab.er.24, 10 Mg Oral Daily Active 11/08/2014 [facility] Omeprazole 40 Mg Capsule.dr Fleming [facility] Allergies, Adverse Reactions, Alerts No Known Medication Allergies Immunizations No Data Provided for This Section Results Order Name Results Value Reference Range Date Interpretation Comments Source Capillary blood glucose measurement by glucometer (mass/volume) 125 70 - 120 06/05/2018 [facility] Blood leukocytes automated count (number/volume) 9.13 4.8 - 10.8 05/31/2018 [facility] Blood erythrocytes automated count (number/volume) 4.56 3.6 - 5.1 05/31/2018 [facility] Blood hemoglobin measurement (moles/volume) 14.2 12.0 - 16.0 05/31/2018 [facility] Automated blood hematocrit (volume fraction) 42.6 34.2 - 44.1 05/31/2018 [facility] Automated erythrocyte mean corpuscular volume 93.4 81 - 99 05/31/2018 [facility] Automated erythrocyte mean corpuscular hemoglobin (mass per erythrocyte) 31.1 28 - 32 05/31/2018 [facility] Automated erythrocyte mean corpuscular hemoglobin concentration measurement (mass/volume) 33.3 31 - 35 05/31/2018 [facility] RDW BldCo-Rto 12.9 11.7 - 14.4 05/31/2018 [facility] Automated blood platelet count (count/volume) 182 140 - 360 05/31/2018 [facility] Automated blood segmented neutrophil count as percentage of total leukocytes 51.8 38.7 - 80.0 05/31/2018 [facility] Automated blood lymphocyte count as percentage ot total leukocytes 38.9 18.0 - 39.1 05/31/2018 [facility] Automated blood monocyte count as percentage of total leukocytes 6.6 4.4 - 11.3 05/31/2018 [facility] Automated blood eosinophil count as percentage of total leukocytes 2.1 0.0 - 6.0 05/31/2018 [facility] Automated blood basophil count as percentage of total leukocytes 0.2 0.0 - 1.0 05/31/2018 [facility] IM GRANULOCYTES % 0.4 0.0 - 1.0 05/31/2018 [facility] Automated blood neutrophil count 4.7 2.1 - 6.9 05/31/2018 [facility] Blood lymphocytes count (number/volume) 3.6 1.0 - 3.2 05/31/2018 [facility] Blood monocytes automated count (number/volume) 0.6 0.2 - 0.8 05/31/2018 [facility] Automated blood eosinophil count 0.2 0.0 - 0.4 05/31/2018 [facility] Automated blood basophil count (count/volume) 0.0 0.0 - 0.1 05/31/2018 [facility] Absolute Immature Granulocyte (auto 0.04 0 - 0.1 05/31/2018 [facility] Serum or plasma sodium measurement (moles/volume) 138 136 - 145 05/31/2018 [facility] Serum or plasma potassium measurement (moles/volume) 4.2 3.5 - 5.1 05/31/2018 [facility] Serum or plasma chloride measurement (moles/volume) 104 98 - 107 05/31/2018 [facility] Serum or plasma carbon dioxide, total measurement (moles/volume) 26 22 - 29 05/31/2018 [facility] Serum or plasma anion gap 12.2 8 - 16 05/31/2018 [facility] Serum or plasma urea nitrogen measurement (mass/volume) 32 7 - 26 05/31/2018 [facility] Serum or plasma creatinine measurement (mass/volume) 0.69 0.57 - 1.11 05/31/2018 [facility] Serum or plasma urea nitrogen/creatinine mass ratio 46 6 - 25 05/31/2018 [facility] Estimated glomerular filtration rate (GFR) determination > 60 60 05/31/2018 [facility] Glucose measurement 108 74 - 118 05/31/2018 [facility] Serum or plasma calcium measurement (mass/volume) 9.3 8.4 - 10.2 05/31/2018 [facility] Capillary blood glucose measurement by glucometer (mass/volume) 111 70 - 120 02/05/2018 [facility] Prothrombin time (PT) in platelet poor plasma by coagulation assay 12.4 11.9 - 14.5 02/05/2018 [facility] INR in Platelet poor plasma by Coagulation assay 0.85 02/05/2018 [facility] Activated partial thromboplastin time (aPTT) in platelet poor plasma bycoagulation assay 23.2 23.8 - 35.5 02/05/2018 [facility] Prothrombin time (PT) in platelet poor plasma by coagulation assay 12.4 11.9 - 14.5 02/05/2018 [facility] INR in Platelet poor plasma by Coagulation assay 0.85 02/05/2018 [facility] Activated partial thromboplastin time (aPTT) in platelet poor plasma bycoagulation assay 23.2 23.8 - 35.5 02/05/2018 [facility] Urine color determination YELLOW YELLOW 02/05/2018 [facility] Urine clarity CLEAR CLEAR 02/05/2018 [facility] Specific gravity of Urine by Test strip 1.020 1.010 - 1.025 02/05/2018 [facility] Urine pH measurement by automated test strip 6 5 - 7 02/05/2018 [facility] Urine leukocyte esterase detection by dipstick NEGATIVE NEGATIVE 02/05/2018 [facility] Urine nitrite detection NEGATIVE NEGATIVE 02/05/2018 [facility] Urine protein measurement by test strip (mass/volume) NEGATIVE NEGATIVE 02/05/2018 [facility] Urine glucose detection NEGATIVE NEGATIVE 02/05/2018 [facility] Urine ketones detection by automated test strip NEGATIVE NEGATIVE 02/05/2018 [facility] Urine urobilinogen measurement by test strip (mass/volume) 1 0.2 - 1 02/05/2018 [facility] Urine total bilirubin measurement (mass/volume) NEGATIVE NEGATIVE 02/05/2018 [facility] Urine erythrocytes detection NEGATIVE NEGATIVE 02/05/2018 [facility] Automated urine sediment leukocyte count by microscopy (number/high power field) NONE 0 - 5 02/05/2018 [facility] Erythrocytes detection in urine sediment by light microscopy NONE 0 - 5 02/05/2018 [facility] Bacteria detection in urine sediment by light microscopy FEW NONE 02/05/2018 [facility] Epithelial cells detection in urine sediment by light microscopy FEW NONE 02/05/2018 [facility] Urine color determination YELLOW YELLOW 02/05/2018 [facility] Urine clarity CLEAR CLEAR 02/05/2018 [facility] Specific gravity of Urine by Test strip 1.020 1.010 - 1.025 02/05/2018 [facility] Urine pH measurement by automated test strip 6 5 - 7 02/05/2018 [facility] Urine leukocyte esterase detection by dipstick NEGATIVE NEGATIVE 02/05/2018 [facility] Urine nitrite detection NEGATIVE NEGATIVE 02/05/2018 [facility] Urine protein measurement by test strip (mass/volume) NEGATIVE NEGATIVE 02/05/2018 [facility] Urine glucose detection NEGATIVE NEGATIVE 02/05/2018 [facility] Urine ketones detection by automated test strip NEGATIVE NEGATIVE 02/05/2018 [facility] Urine urobilinogen measurement by test strip (mass/volume) 1 0.2 - 1 02/05/2018 [facility] Urine total bilirubin measurement (mass/volume) NEGATIVE NEGATIVE 02/05/2018 [facility] Urine erythrocytes detection NEGATIVE NEGATIVE 02/05/2018 [facility] Automated urine sediment leukocyte count by microscopy (number/high power field) NONE 0 - 5 02/05/2018 [facility] Erythrocytes detection in urine sediment by light microscopy NONE 0 - 5 02/05/2018 [facility] Bacteria detection in urine sediment by light microscopy FEW NONE 02/05/2018 [facility] Epithelial cells detection in urine sediment by light microscopy FEW NONE 02/05/2018 [facility] Serum or plasma total bilirubin measurement (mass/volume) 0.3 0.2 - 1.2 02/05/2018 [facility] Aspartate Amino Transf (AST/SGOT) 29 5 - 34 02/05/2018 [facility] Serum or plasma alanine aminotransferase measurement (enzymatic activity/volume) 35 0 - 55 02/05/2018 [facility] Serum or plasma protein measurement (mass/volume) 7.9 6.5 - 8.1 02/05/2018 [facility] Serum or plasma albumin measurement (mass/volume) 3.9 3.5 - 5.0 02/05/2018 [facility] Plasma globulin measurement (mass/volume) 4.0 2.3 - 3.5 02/05/2018 [facility] Serum or plasma albumin/globulin mass ratio 1.0 0.8 - 2.0 02/05/2018 [facility] Serum or plasma alkaline phosphatase measurement (enzymatic activity/volume) 76 40 - 150 02/05/2018 [facility] BNP Bld-mCnc < 10.0 0 - 100 02/05/2018 [facility] Serum or plasma creatine kinase measurement (enzymatic activity/volume) 45 29 - 168 02/05/2018 [facility] Serum or plasma creatine kinase MB measurement (mass/volume) 0.60 0 - 5.0 02/05/2018 [facility] Troponin I measurement by highly sensitive enzyme immunoassay < 0.001 0 - 0.300 02/05/2018 [facility] Serum or plasma amylase measurement (enzymatic activity/volume) 37 25 - 125 02/05/2018 [facility] Serum or plasma lipase measurement (enzymatic activity/volume) 23 8 - 78 02/05/2018 [facility] Blood leukocytes automated count (number/volume) 8.73 4.8 - 10.8 02/05/2018 [facility] Blood erythrocytes automated count (number/volume) 4.48 3.6 - 5.1 02/05/2018 [facility] Blood hemoglobin measurement (moles/volume) 14.3 12.0 - 16.0 02/05/2018 [facility] Automated blood hematocrit (volume fraction) 40.8 34.2 - 44.1 02/05/2018 [facility] Automated erythrocyte mean corpuscular volume 91.1 81 - 99 02/05/2018 [facility] Automated erythrocyte mean corpuscular hemoglobin (mass per erythrocyte) 31.9 28 - 32 02/05/2018 [facility] Automated erythrocyte mean corpuscular hemoglobin concentration measurement (mass/volume) 35.0 31 - 35 02/05/2018 [facility] RDW BldCo-Rto 12.7 11.7 - 14.4 02/05/2018 [facility] Automated blood platelet count (count/volume) 189 140 - 360 02/05/2018 [facility] Automated blood segmented neutrophil count as percentage of total leukocytes 51.2 38.7 - 80.0 02/05/2018 [facility] Automated blood lymphocyte count as percentage ot total leukocytes 37.9 18.0 - 39.1 02/05/2018 [facility] Automated blood monocyte count as percentage of total leukocytes 7.6 4.4 - 11.3 02/05/2018 [facility] Automated blood eosinophil count as percentage of total leukocytes 2.5 0.0 - 6.0 02/05/2018 [facility] Automated blood basophil count as percentage of total leukocytes 0.3 0.0 - 1.0 02/05/2018 [facility] IM GRANULOCYTES % 0.5 0.0 - 1.0 02/05/2018 [facility] Automated blood neutrophil count 4.5 2.1 - 6.9 02/05/2018 [facility] Blood lymphocytes count (number/volume) 3.3 1.0 - 3.2 02/05/2018 [facility] Blood monocytes automated count (number/volume) 0.7 0.2 - 0.8 02/05/2018 [facility] Automated blood eosinophil count 0.2 0.0 - 0.4 02/05/2018 [facility] Serum or plasma sodium measurement (moles/volume) 141 136 - 145 02/05/2018 [facility] Serum or plasma potassium measurement (moles/volume) 3.7 3.5 - 5.1 02/05/2018 [facility] Serum or plasma chloride measurement (moles/volume) 106 98 - 107 02/05/2018 [facility] Serum or plasma carbon dioxide, total measurement (moles/volume) 21 22 - 29 02/05/2018 [facility] Serum or plasma anion gap 17.7 8 - 16 02/05/2018 [facility] Serum or plasma urea nitrogen measurement (mass/volume) 20 7 - 26 02/05/2018 [facility] Serum or plasma creatinine measurement (mass/volume) 0.75 0.57 - 1.11 02/05/2018 [facility] Serum or plasma urea nitrogen/creatinine mass ratio 27 6 - 25 02/05/2018 [facility] Estimated glomerular filtration rate (GFR) determination > 60 60 02/05/2018 [facility] Glucose measurement 123 74 - 118 02/05/2018 [facility] Serum or plasma calcium measurement (mass/volume) 9.9 8.4 - 10.2 02/05/2018 [facility] Serum or plasma total bilirubin measurement (mass/volume) 0.3 0.2 - 1.2 02/05/2018 [facility] Aspartate Amino Transf (AST/SGOT) 29 5 - 34 02/05/2018 [facility] Serum or plasma alanine aminotransferase measurement (enzymatic activity/volume) 35 0 - 55 02/05/2018 [facility] Serum or plasma protein measurement (mass/volume) 7.9 6.5 - 8.1 02/05/2018 [facility] Serum or plasma albumin measurement (mass/volume) 3.9 3.5 - 5.0 02/05/2018 [facility] Plasma globulin measurement (mass/volume) 4.0 2.3 - 3.5 02/05/2018 [facility] Serum or plasma albumin/globulin mass ratio 1.0 0.8 - 2.0 02/05/2018 [facility] Serum or plasma alkaline phosphatase measurement (enzymatic activity/volume) 76 40 - 150 02/05/2018 [facility] BNP Bld-mCnc < 10.0 0 - 100 02/05/2018 [facility] Serum or plasma creatine kinase measurement (enzymatic activity/volume) 45 29 - 168 02/05/2018 [facility] Serum or plasma creatine kinase MB measurement (mass/volume) 0.60 0 - 5.0 02/05/2018 [facility] Troponin I measurement by highly sensitive enzyme immunoassay < 0.001 0 - 0.300 02/05/2018 [facility] Serum or plasma amylase measurement (enzymatic activity/volume) 37 25 - 125 02/05/2018 [facility] Serum or plasma lipase measurement (enzymatic activity/volume) 23 8 - 78 02/05/2018 [facility] Pathology Reports No Data Provided for This [...] DC Date Status Source Departed Emergency Room [id number] JIM GONZALEZ MD 04/25/2017 04/25/2017 [facility] Departed Emergency Room [id number] QASIM BARAHONA MD 02/05/2018 02/05/2018 [facility] Registered Surgical Day Care [id number] DEVON GARCIA MD 06/05/2018 [facility] Departed Emergency Room [id number] LOLA LUIS MD 07/04/2018 07/04/2018 [facility] Procedures Procedure Code Date Perfomer Comments Source REMOVE WRIST/FOREARM LESION [id number] 06/05/2018 RADHA [facility] Computed tomography of abdomen and pelvis with contrast [id number] 02/05/2018 [facility] Assessment and Plan No Data Provided for This Section Plan of Care Plan of Care Date Source Discharge Date 07/04/18 6:43am Disposition HOME, SELF-CARE Condition at Discharge Stable Instructions/Education Provided Sprains - Wrist Forms Provided Work/School Excuse Prescriptions See Medication Section Additional Instructions/Education Take Ibuprofen or Tylenol for pain as directed Follow up with primary care physician 07/04/2018 [facility] Discharge Date 02/05/18 9:21pm Disposition HOME, SELF-CARE Condition at Discharge Stable Instructions/Education Provided Abdominal Pain - Adult Hiatal Hernia Forms Provided Work/School Excuse Prescriptions See Medication Section Referrals GIFTY CRUM MD (NS) Address: [address] [place] [address] [phone] Additional Instructions/Education 1. FOLLOW UP WITH YOUR DOCTOR NEEDED. REASON FOR REFERRAL:EVALUATION AND TREATMENT. 2. RETURN TO ED IF SYMPTOMS WORSEN OR HAVE ANY CONCERNS. 3. DIAGNOSIS: GERD. 02/05/2018 [facility] Social History Social History Date Source Social [...] Start Date Stop Date Never Smoker 07/04/2018 [facility] Family History Value Date Source Relationship Condition Age at Onset Recorded Date/Time 09 Brother Family history of coronary artery disease Not Recorded 10/25/2014 12:51am 07/04/2018 [facility] Relationship Condition Age at Onset Recorded Date/Time 09 Brother Family history of coronary artery disease Not Recorded 10/25/2014 12:51am 02/05/2018 [facility] Advance Directives Order Name Results Value Date Source Advance Directives Advance Directives Directive Response Recorded Date/Time Does the patient have an advance directive? No 10/24/14 11:47pm Do you have a Directive to Physician? No 07/04/18 5:57am Do you have a Medical Power of Software Intern? No 07/04/18 5:57am Do you have an [...] rights and responsibilities? Yes 07/04/18 5:57am 07/04/2018 [facility] Advance Directives Advance Directives Directive Response Recorded Date/Time Does the patient have an advance directive? No 10/24/14 11:47pm Do you have a Directive to Physician? No 02/05/18 6:07pm Do you have a Medical Power of Software Intern? No 02/05/18 6:07pm Do you have an [...] rights and responsibilities? Yes 02/05/18 6:07pm 02/05/2018 [facility] Functional Status No Data Provided for This Section
--- NOTE | 2018-11-17 00:33 | NUR ---
PT ARRIVED BY STRETCHER TO ROOM 115. PT AMBULATORY TO HOSPITAL BED, STEADY GAIT. PT IS AAOX3, RR EVEN AND NON-LABORED, ON ROOM AIR. NO S/SX OF DISTRESS NOTED. ORIENTED PT TO HOSPITAL ROOM, CALL LIGHT, PHONE, BED CONTROLS, AND LIGHTS. LEFT PT LAYING SEMI FOWLERS IN BED, BED IN LOW LOCKED POSITION, SIDE RAILS UPX2, CALL LIGHT AND PHONE WITHIN REACH.
[2018-11-17] MEDS ORDERED: LISINOPRIL5 MG PO (01:04)
--- NOTE | 2018-11-17 06:14 | NUR ---
CONSULTATION CALLED TO MD Sebastian JACOBSEN. NO NEW ORDERS RECEIVED.
[2018-11-17 06:41] LABS: CREATINE KINASE MB 0.6 ng/mL (0-5.0)
--- NOTE | 2018-11-17 09:55 | NUR ---
MD JACOBSEN INTO SEE PT
[2018-11-17 10:16] LABS: CHOL/HDL RATIO 4.4 (3.0-3.6)
[2018-11-17 10:36] LABS: THYROID STIMULATING HORMONE 0.855 uIU/mL (0.350-4.940)
--- NOTE | 2018-11-17 11:50 | NUR ---
WHEELED OFF UNIT VIA WC FOR STRESS TEST, NO CHANGE IN CONDITION
--- NOTE | 2018-11-17 11:52 | Consultation ---
DATE OF CONSULTATION: 11/17/2018 REASON FOR CONSULTATION: Palpitation. HISTORY: A 73-year-old lady, who is known with borderline hypertension, borderline diabetes. The patient takes Protonix and takes lisinopril as needed. The patient noted for the last week she is feeling weak. Whenever she takes the lisinopril, she feel her heart palpating. She felt also dizzy. She denied having any angina. She is having very active life. She exercises regularly. 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 She denied having any angina. Her main problem is weakness and palpitation and possibly related to those days when she takes her lisinopril, which was started recently. There is no orthopnea, no paroxysmal nocturnal dyspnea. There is no syncope or presyncope. There is occasional chest tightness with this episode and her heart racing. There is no syncope or presyncope. REVIEW OF SYSTEMS: CARDIAC: As per above. PULMONARY: No cough. No hemoptysis. GI: No hematemesis. No melena. : She is incontinent. No hematuria. MUSCULOSKELETAL: No aches. No pain. ENDOCRINE: Diet-controlled diabetes. No heat intolerance. HEMATOLOGY: No easy bruising or bleeding. 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 She is nonsmoker and non-alcohol drinker. HOME MEDICATIONS: 1. Protonix one tablet a day. 2. Lisinopril, she is taking it p.r.n., recently started by her physician. PAST MEDICAL HISTORY: 1. Borderline diabetes. 2. Borderline hypertension. 3. Hysterectomy. 4. Tubal ligation. 5. Bladder lift, however, the patient continued to be incontinence. 6. History of kidney stone. FAMILY HISTORY: Father of lung cancer, he was smoker. Mother at age 96 of old age. Eight siblings, one one brother and one sister of car accident. One brother had coronary artery bypass surgery at 67, he is doing well now. Five children, three sons and two daughters. PHYSICAL EXAMINATION: VITAL SIGNS: Height of 5 feet 1 inch, weight of 159. Blood pressure 130/70, heart rate 60, respiratory rate of 18, and afebrile. HEENT: Pupils are equal and reactive. NECK: No elevation of jugular venous pulsation. No bruit. CHEST: Clear to auscultation and percussion. HEART: PMI, fifth left intercostal space. Normal first and second heart sounds. ABDOMEN: Soft with good bowel sounds. EXTREMITIES: No cyanosis, no clubbing, no edema. NEUROLOGIC: Nonfocal. LABORATORY DATA: Electrolytes are normal. Two sets of cardiac enzymes are normal. EKG is abnormal, showing normal sinus rhythm, inferior Q-waves, low voltage in the anterior leads, nonspecific ST changes. Chest x-ray, no cardiomegaly. IMPRESSION: 1. Palpitation. 2. Vague symptoms of discomfort. 3. Borderline diabetes. 4. Hypertension. Differential diagnosis: 1. Primary arrhythmia, which is not unusual in this age group. 2. Symptoms are related to hypotension secondary to the lisinopril intake. 3. Coronary artery disease, mainly in view of the abnormal EKG. PLAN: 1. Keep on telemetry. 2. Two sets of cardiac enzymes are negative. 3. Checking lipid profile. 4. Checking TSH. 5. Echocardiogram is done, which we will review. 6. Cardiac stress test. MD SANFORD Stark/MODL /[id number]
[2018-11-17] MEDS ORDERED: ACETAMINOPHEN 325 MG TAB PO PRN (12:45)
--- NOTE | 2018-11-17 12:50 | NUR ---
BACK IN ROOM VIA WC,
--- NOTE | 2018-11-17 13:21 | NUR ---
PT MEDICATED FOR HEADACHE, EDUCATED TO CALL FOR ASSISTANCE, PT VERBALIZED UNDERSTANDING, MD DOMINGUEZ INTO SEE PT, DISCUSSED POC
[2018-11-17] MEDS ORDERED: MORPHINE SULFATE 2 MG/ML SYR 1ML IV PRN (14:00)
--- NOTE | 2018-11-17 15:53 | History and Physical ---
HISTORY OF PRESENT ILLNESS: This is a 73-year-old female, who apparently came into the emergency room department with complaints of sudden onset of chest pain that began suddenly yesterday with underlying palpitations. The patient reports she has similar findings in the past, but kind of ignored the situation of the chest pain and palpitations. She denies any associated nausea, vomiting, or any diaphoresis. Denies any recent cough, congestion, or any fever. Reports chest pain was substernal, radiated to her left shoulder. The patient seen and evaluated at bedside on the medical floor, currently doing well with no other issues at this time. REVIEW OF SYSTEMS: Pertinent positives: Chest pain, palpitation. Pertinent negatives: Denies any nausea, vomiting, diarrhea, dysuria, hematuria, frequency, urgency, lightheadedness, dizziness, abdominal pain, headaches, shortness of breath, cough, congestion, fever, or any other complaints. The rest of the 14-point review of systems have been reviewed with the patient and are negative. ALLERGIES: NO KNOWN DRUG ALLERGIES. HOME MEDICATIONS: Omeprazole 40 mg daily, lisinopril 5 mg daily. PAST MEDICAL HISTORY: She has hypertension. PAST SURGICAL HISTORY: None. FAMILY HISTORY: Hypertension, diabetes. SOCIAL HISTORY: No drugs. No alcohol. Does not smoke. 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 PHYSICAL EXAMINATION: VITAL SIGNS: Temperature is 96.5, pulse 68, respiratory rate is 16, blood pressure 146/71, pulse ox 98% on room air. GENERAL: Not in acute distress. Alert and oriented x3. Cooperative on examination. HEENT: Head; normocephalic and atraumatic. Eyes; pupils are equal, round, and reactive to light bilaterally. Extraocular Movements are intact bilaterally. Throat; no evidence of erythema or exudates in the posterior pharynx. Has poor dentition. NECK: Supple. Good range of motion. PULMONARY: Clear to auscultation bilaterally. No wheezing, no rales, no rhonchi, and no crackles appreciated. CARDIOVASCULAR: Positive S1 and S2. No murmurs, rubs, or gallops appreciated. GI: Abdomen is soft, nondistended and nontender to palpation. Bowel sounds present. MUSCULOSKELETAL: Strength is 5/5 throughout. No evidence of any muscle deficits on examination. No weakness appreciated. NEUROLOGIC: Cranial nerves II through XII grossly intact. No evidence of any neurological deficits on exam. SKIN: Intact. Warm to touch. Good cap refill. PSYCHIATRIC: Normal affect and mood. EXTREMITIES: No edema. Good range of motion throughout. LABORATORY DATA: Show white count 7, hemoglobin 13.5, hematocrit is 38.9, and platelets of 166. Chemistry; sodium 140, potassium 4.1, chloride 104, bicarb 22, anion gap of 18, BUN is 26, creatinine 0.75, calcium is 9.5, total bilirubin is 0.5, AST 20, ALT 26, alkaline phosphatase 77. Troponins were negative. LDL is 114. TSH is 0.855. Microbiology none. IMAGING STUDIES: Chest x-ray, subsegmental atelectasis in the left lung base. Otherwise, no acute cardiopulmonary abnormalities. IMPRESSION: 1. Chest pain, rule out acute coronary syndrome, likely atypical in nature. 2. Hypertension. PLAN: At this time, cardiac enzymes were found to be negative. Cardiac stress test has been performed, awaiting for the results. Cardiology has been consulted and monitor very closely. Continue with cardioprotective medications. Continue with same home medications with no changes. She is currently chest pain-free with no complaints. Once she has been cleared by Cardiology, likely tomorrow, we will discharge her home. MD DEWAYNE Piña/HASMUKH /[id number]
--- NOTE | 2018-11-17 18:13 | History and Physical ---
TITLE OF THE TEST: Cardiac stress test. RESULTS: 1. The patient exercised for a total of 4 minute and 31 seconds. 2. Heart rate increased from 63 to 138 per minute. 3. Blood pressure increased from 120/62 to 150/80. 4. No EKG changes. 5. No chest pain. IMPRESSION: Negative cardiac stress test. Limitations are discussed and explained. MD SANFORD Stark/HASMUKH /[id number]
--- NOTE | 2018-11-17 18:55 | NUR ---
WALKING ROUNDS PERFORMED, RECEIVED PT LAYING SEMI FOWLERS IN BED, AAOX3, RR EVEN AND NON-LABORED, ON ROOM AIR. NO S/SX OF DISTRESS NOTED. LEFT PT LAYING SEMI FOWLERS IN BED, BED IN LOW LOCKED POSITION, SIDE RAILS UPX2, CALL LIGHT AND PHONE WITHIN REACH.
--- NOTE | 2018-11-17 19:45 | NUR ---
PT AMBULATING IN HUNT WITH FAMILY AT SIDE. STEADY GAIT NOTED.
[2018-11-17] MEDS ORDERED: ATORVASTATIN 20 MG TAB PO SCH (21:00)
[2018-11-18] VITALS: BP 141/61
[2018-11-18 04:00] VITALS: BP 124/69
[2018-11-18 06:22] LABS: BASOPHILS % 0.1 % (0.0-1.0); EOSINOPHILS # (AUTO) 0.2 (0.0-0.4); EOSINOPHILS % 2.6 % (0.0-6.0); HEMATOCRIT 41.4 % (34.2-44.1); HEMOGLOBIN 13.7 g/dL (12.0-16.0); LYMPHOCYTES # (AUTO) 2.8 (1.0-3.2); LYMPHOCYTES % 39.3 % (18.0-39.1); MEAN CORPUSCULAR HEMOGLOBIN 30.4 pg (28-32); MEAN CORPUSCULAR HGB CONC 33.1 g/dL (31-35); MONOCYTES # (AUTO) 0.4 (0.2-0.8); MONOCYTES % 6.3 % (4.4-11.3); NEUTROPHILS # (AUTO) 3.6 (2.1-6.9); NEUTROPHILS % 51.1 % (38.7-80.0); PLATELET COUNT 152 x10e3/uL (140-360); RED CELL DISTRIBUTION WIDTH 12.9 % (11.7-14.4)
[2018-11-18 07:02] LABS: ANION GAP 11.2 mmol/L (8-16); BLOOD UREA NITROGEN 20 mg/dL (7-26); BUN/CREATININE RATIO 29 (6-25); CALCIUM 9.7 mg/dL (8.4-10.2); CARBON DIOXIDE 28 mmol/L (22-29); CHLORIDE 105 mmol/L (98-107); EST GLOMERULAR FILTRATION RATE > 60 ML/MIN (60-); GLUCOSE 135 mg/dL (74-118); POTASSIUM 4.2 mmol/L (3.5-5.1); SODIUM 140 mmol/L (136-145)
[2018-11-18 08:10] VITALS: BP 118/67
[2018-11-18] MEDS ORDERED: ASPIRIN 81 MG CHEW TAB PO SCH (09:00)
[2018-11-18 09:01] VITALS: BP 118/67
[2018-11-18 11:27] VITALS: BP 125/69
--- NOTE | 2018-11-18 11:30 | NUR ---
AMBULATING IN HALLWAY , STEADY GAIT
--- NOTE | 2018-11-18 12:00 | NUR ---
MD JACOBSEN INTO SEE PT, DISCUSSED DISCHARGE INSTRUCTIONS
--- NOTE | 2018-11-18 13:49 | NUR ---
MD DOMINGUEZ INTO SEE PT, DISCUSSED DISCHARGE INSTRUCTIONS WITH PT, VERBALIZED UNDERSTANDING,
[2018-11-18] MEDS ORDERED: ASPIR-LOW81 MG PO (13:51)
--- NOTE | 2018-11-19 06:21 | Discharge Summary ---
FINAL DISCHARGE DIAGNOSES: 1. Chest pain, ruled out likely atypical in nature. 2. Hypertension. TYPING CHECKER: Cardiology PHYSICAL EXAMINATION: VITAL SIGNS: Temperature 96.2, pulse 67, respiratory rate 17, blood pressure 125/69, pulse ox 96% on room air. LABORATORY FINDINGS: Show white count 6.9, hemoglobin 13.7, hematocrit is 41, and platelets of 152. Chemistry; sodium 140, potassium 4.2, chloride 105, bicarb 28, anion gap of 11. BUN is 20, creatinine is 0.7, glucose 135, calcium 9.7, total bilirubin is 0.5. AST was 20, ALT 26. Troponins were negative. Albumin was 3.8. LDL cholesterol was 114. TSH was 0.855. CK was 33. MICROBIOLOGY: None. IMAGING STUDIES: Chest x-ray, found to be negative. Cardiac stress test was negative. HOSPITAL COURSE: A 73-year-old female, came into the emergency room with complaints of chest pain. The patient was admitted on observation and Cardiology was consulted. Cardiac enzymes were found to be negative. EKG showed no acute findings. 2D echo was within normal range and cardiac stress test was found to be negative. No further cardiac workup was needed, was cleared for discharge by Cardiology. The patient had no complaints of chest pain prior to being discharged home. On the day of discharge, vital signs were stable. Labs were reviewed and stable. The patient was seen, evaluated, and examined thoroughly on the day of discharge. No other complaints. The patient verbalized understanding and agreed to plan of care to followup appointment as an outpatient with the primary care physician in 1 week and her sisal operator in 2 weeks. MEDICATIONS: See med reconciliation form. DISPOSITION: Home. CONDITION: Stable. DIET: Heart healthy. In the event of any worsening symptoms, the patient was advised to come back to the ED for further evaluation. Discharge summary took greater than 35 minutes. MD DEWAYNE Piña/HASMUKH /[id number]
--- NOTE | 2018-11-20 14:07 | EXERCISE STRESS TEST ---
DATE OF STUDY: 11/16/2018 20:45:00 EKG 12 LEAD TITLE OF THE TEST: Cardiac stress test. RESULTS: 1. The patient exercised for a total of 4 minute and 31 seconds. 2. Heart rate increased from 63 to 138 per minute. 3. Blood pressure increased from 120/62 to 150/80. 4. No EKG changes. 5. No chest pain. IMPRESSION: Negative cardiac stress test. Limitations are discussed and explained. MD SANFORD Stark/MODL /[id number]
== END 2018-11-18 14:12 | disposition home or self-care (01) ==
LOC: ER 20:23 → ERHOLD 11-17 00:14 → MED/SURG 11-17 00:33
PROVIDERS: ADMIT Internal Medicine; ATTEND Internal Medicine
DX: R07.89 Other chest pain (principal); I25.10 Atherosclerotic heart disease of native coronary artery without angina pectoris; I10 Essential (primary) hypertension; R73.03 Prediabetes; R00.2 Palpitations; I49.9 Cardiac arrhythmia, unspecified
CPT/HCPCS: 36415 ×3; 71045; 80048; 80053; 80061; 82550 ×2; 82553 ×2; 82948 ×2; 83880; 84443; 84484 ×2; 85025 ×2; 93005; 93017; 93306; 99284; G0378 ×2; J2405; J2270

== ENCOUNTER 2019-05-05 16:58 | Emergency (ER) | payer OTHER ==
[~2019-05-05] VITALS: Ht 154.9 cm; Wt 72.1 kg
[~2019-05-05 16:58] MED LIST changes: +ASPIR-LOW81 MG PO; +LISINOPRIL5 MG PO
[2019-05-05 17:19] VITALS: BP 180/88
[2019-05-05 18:29] LABS: CLARITY,URINE CLEAR (CLEAR); COLOR,URINE YELLOW (YELLOW); LEUKOCYTE ESTERASE ,URINE NEGATIVE (NEGATIVE); NITRITE,URINE NEGATIVE (NEGATIVE); PROTEIN,URINE DIPSTICK NEGATIVE (NEGATIVE)
[2019-05-05 18:30] LABS: BACTERIA,URINE FEW /HPF; BILIRUBIN,URINE NEGATIVE (NEGATIVE); EPITHELIAL CELLS,URINE FEW /LPF; KETONES,URINE NEGATIVE (NEGATIVE); URINE UROBILINOGEN 0.2 mg/dL (0.2 - 1)
[2019-05-05] MEDS ORDERED: CEFDINIR300 MG PO (18:33)
== END 2019-05-05 18:40 | disposition home or self-care (01) ==
LOC: ER 16:58
DX: R30.0 Dysuria (principal); R10.30 Lower abdominal pain, unspecified; N30.90 Cystitis, unspecified without hematuria; I10 Essential (primary) hypertension; E11.9 Type 2 diabetes mellitus without complications; K21.9 Gastro-esophageal reflux disease without esophagitis
CPT/HCPCS: 81001; 87086; 99283

== ENCOUNTER 2020-02-17 21:27 | Emergency (ER) | payer OTHER ==
[~2020-02-17] VITALS: Ht 154.9 cm; Wt 72.1 kg
[~2020-02-17 21:27] MED LIST changes: +CEFDINIR300 MG PO
[2020-02-17 22:58] LABS: BILIRUBIN,URINE NEGATIVE (NEGATIVE); CLARITY,URINE CLEAR (CLEAR); COLOR,URINE YELLOW (YELLOW); KETONES,URINE NEGATIVE (NEGATIVE); LEUKOCYTE ESTERASE ,URINE NEGATIVE (NEGATIVE); NITRITE,URINE NEGATIVE (NEGATIVE); PROTEIN,URINE DIPSTICK NEGATIVE (NEGATIVE); URINE UROBILINOGEN 0.2 mg/dL (0.2 - 1)
[2020-02-17 23:04] LABS: BACTERIA,URINE RARE /HPF; EPITHELIAL CELLS,URINE FEW /LPF; RBC,URINE 0-5 /HPF (0-5); WBC,URINE (MAN) 0-5 /HPF (0-5)
[2020-02-18] MEDS ORDERED: LIDOCAINE 4% PATCH TP SCH (00:30)
[2020-02-18] MEDS ORDERED: ASPIRIN 81 MG CHEW TAB PO ONE (00:45)
== END 2020-02-18 01:38 | disposition home or self-care (01) ==
LOC: ER 22:43
DX: M54.9 Dorsalgia, unspecified (principal); R10.30 Lower abdominal pain, unspecified; E11.9 Type 2 diabetes mellitus without complications; I10 Essential (primary) hypertension; K21.9 Gastro-esophageal reflux disease without esophagitis; Z87.442 Personal history of urinary calculi
CPT/HCPCS: 71046; 81001; 99283

== ENCOUNTER 2020-04-15 10:14 | Emergency (ER) | payer MEDICARE, OTHER ==
[~2020-04-15] VITALS: Ht 154.9 cm; Wt 68.9 kg
[2020-04-15 11:11] LABS: COLOR,URINE YELLOW (YELLOW)
[2020-04-15 11:12] LABS: CLARITY,URINE SL CLOUDY (CLEAR); KETONES,URINE NEGATIVE (NEGATIVE); LEUKOCYTE ESTERASE ,URINE TRACE (NEGATIVE); NITRITE,URINE POSITIVE (NEGATIVE); PROTEIN,URINE DIPSTICK NEGATIVE (NEGATIVE); URINE UROBILINOGEN 1 mg/dL (0.2 - 1)
[2020-04-15 11:52] LABS: BACTERIA,URINE MODERATE /HPF; EPITHELIAL CELLS,URINE MODERATE /LPF; RBC,URINE 0-5 /HPF (0-5); WBC,URINE (MAN) >50 /HPF (0-5)
[2020-04-15] MEDS ORDERED: CEFTRIAXONE SOD 1 GM VIAL IM ONE (12:30)
[2020-04-15] MEDS ORDERED: LIDOCAINE 1% 5ML-MPF INJ ONE (12:30)
[2020-04-15 14:00] VITALS: BP 158/73
== END 2020-04-15 13:45 | disposition home or self-care (01) ==
LOC: ER 10:39
DX: N39.0 Urinary tract infection, site not specified (principal); R10.2 Pelvic and perineal pain; E11.9 Type 2 diabetes mellitus without complications; K21.9 Gastro-esophageal reflux disease without esophagitis; Z87.442 Personal history of urinary calculi
CPT/HCPCS: 81001; 87086; 87186; 99283; J0696

== ENCOUNTER 2021-01-07 22:28 | Emergency (ER) | payer MEDICARE ==
[~2021-01-07] VITALS: Ht 154.9 cm; Wt 69.4 kg
[2021-01-07 22:58] LABS: BASOPHILS % 0.3 % (0.0-1.0); EOSINOPHILS # (AUTO) 0.2 (0.0-0.4); EOSINOPHILS % 2.9 % (0.0-6.0); HEMATOCRIT 42.8 % (34.2-44.1); HEMOGLOBIN 13.9 g/dL (12.0-16.0); LYMPHOCYTES # (AUTO) 1.9 (1.0-3.2); LYMPHOCYTES % 30.1 % (18.0-39.1); MEAN CORPUSCULAR HEMOGLOBIN 30.4 pg (28-32); MEAN CORPUSCULAR HGB CONC 32.5 g/dL (31-35); MEAN CORPUSCULAR VOLUME 93.7 fL (81-99); MONOCYTES # (AUTO) 0.5 (0.2-0.8); MONOCYTES % 8.5 % (4.4-11.3); NEUTROPHILS # (AUTO) 3.6 (2.1-6.9); NEUTROPHILS % 57.9 % (38.7-80.0); PLATELET COUNT 153 x10e3/uL (140-360); RED BLOOD COUNT 4.57 x10e6/uL (3.6-5.1); RED CELL DISTRIBUTION WIDTH 13.2 % (11.7-14.4)
[2021-01-07 23:08] LABS: INR 0.94
[2021-01-07 23:09] LABS: PARTIAL THROMBOPLASTIN TIME 23.4 seconds (23.8-35.5)
[2021-01-07 23:17] LABS: ALBUMIN/GLOBULIN RATIO 1.3 (0.8-2.0); ANION GAP 14.1 mmol/L (8-16); CALCIUM 9.3 mg/dL (8.4-10.2); CREATININE, SERUM 0.82 mg/dL (0.57-1.11); POTASSIUM 4.1 mmol/L (3.5-5.1)
[2021-01-07] MEDS ORDERED: IOPAMIDOL 370 MG/ML 200 ML INFUS..BTL INJ ONE (23:43)
[2021-01-07] MEDS ORDERED: SODIUM CHLORIDE 0.9% 100 ML ONE (23:43)
[2021-01-08 02:17] VITALS: BP 147/72
== END 2021-01-08 02:27 | disposition home or self-care (01) ==
LOC: ER 22:48
DX: R10.32 Left lower quadrant pain (principal); K92.1 Melena; K57.90 Diverticulosis of intestine, part unspecified, without perforation or abscess without bleeding; E11.65 Type 2 diabetes mellitus with hyperglycemia; K21.9 Gastro-esophageal reflux disease without esophagitis; Z87.442 Personal history of urinary calculi
CPT/HCPCS: 36415; 74174; 80053; 85025; 85610; 85730; 86850; 86900; 99284; J7050; Q9967

== ENCOUNTER 2021-04-30 15:32 | Emergency (ER) | payer MEDICARE ==
[~2021-04-30] VITALS: Ht 154.9 cm; Wt 69.4 kg
[2021-04-30] MEDS ORDERED: Morphine 4mg Syringe 4 MG/ML INJ IV STA (15:56)
[2021-04-30] MEDS ORDERED: ONDANSETRON HCL INJ 2MG/ML 2ML 2 MG/ML VIAL IV STA (15:56)
[2021-04-30] MEDS ORDERED: SODIUM CHLORIDE 0.9% 1000ML 500 ML IV STA (15:56)
[2021-04-30 16:15] LABS: BASOPHILS % 0.3 % (0.0-1.0); EOSINOPHILS # (AUTO) 0.1 (0.0-0.4); EOSINOPHILS % 1.5 % (0.0-6.0); HEMATOCRIT 42.6 % (34.2-44.1); HEMOGLOBIN 14.4 g/dL (12.0-16.0); LYMPHOCYTES # (AUTO) 3.9 (1.0-3.2); LYMPHOCYTES % 41.6 % (18.0-39.1); MEAN CORPUSCULAR HEMOGLOBIN 31.4 pg (28-32); MEAN CORPUSCULAR HGB CONC 33.8 g/dL (31-35); MEAN CORPUSCULAR VOLUME 92.8 fL (81-99); MONOCYTES # (AUTO) 0.7 (0.2-0.8); MONOCYTES % 6.9 % (4.4-11.3); NEUTROPHILS # (AUTO) 4.6 (2.1-6.9); NEUTROPHILS % 49.3 % (38.7-80.0); PLATELET COUNT 178 x10e3/uL (140-360); RED BLOOD COUNT 4.59 x10e6/uL (3.6-5.1); RED CELL DISTRIBUTION WIDTH 12.6 % (11.7-14.4)
[2021-04-30 16:17] LABS: CLARITY,URINE SL CLOUDY (CLEAR); COLOR,URINE STRAW (YELLOW); KETONES,URINE 1+ (NEGATIVE); LEUKOCYTE ESTERASE ,URINE TRACE (NEGATIVE); NITRITE,URINE NEGATIVE (NEGATIVE); PROTEIN,URINE DIPSTICK NEGATIVE (NEGATIVE); URINE UROBILINOGEN 0.2 mg/dL (0.2 - 1)
[2021-04-30 16:25] LABS: BACTERIA,URINE MODERATE /HPF; EPITHELIAL CELLS,URINE MODERATE /LPF; TRANSITIONAL EPI CELLS,URINE FEW; WBC,URINE (MAN) 0-5 /HPF (0-5)
[2021-04-30 16:32] LABS: ALBUMIN/GLOBULIN RATIO 1.1 (0.8-2.0); CALCIUM 9.7 mg/dL (8.4-10.2); CREATININE, SERUM 0.81 mg/dL (0.57-1.11)
[2021-04-30] MEDS ORDERED: IOPAMIDOL 370 MG/ML 200 ML INFUS..BTL INJ ONE (17:46)
[2021-04-30] MEDS ORDERED: SODIUM CHLORIDE 0.9% 50ML 50 ML ONE (17:46)
[2021-04-30 18:43] VITALS: BP 117/62
== END 2021-04-30 18:45 | disposition home or self-care (01) ==
LOC: ER 16:00
DX: R10.31 Right lower quadrant pain (principal); R19.7 Diarrhea, unspecified; R11.0 Nausea; E11.9 Type 2 diabetes mellitus without complications; K21.9 Gastro-esophageal reflux disease without esophagitis; Z20.822 Contact with and (suspected) exposure to COVID-19; Z87.442 Personal history of urinary calculi
CPT/HCPCS: 36415; 71045; 74177; 80053; 81001; 83690; 85025; 99284; C9113; J2270; J2405; J7030; Q9967; U0002

== ENCOUNTER 2021-08-31 23:25 | Observation (INO) | payer MEDICARE ==
[~2021-08-31] VITALS: Ht 154.9 cm; Wt 69.4 kg
[2021-09-01] MEDS ORDERED: ONDANSETRON HCL INJ 2MG/ML 2ML 2 MG/ML VIAL IV STA (00:01)
[2021-09-01 00:12] LABS: BASOPHILS % 0.4 % (0.0-1.0); EOSINOPHILS # (AUTO) 0.2 (0.0-0.4); EOSINOPHILS % 2.3 % (0.0-6.0); HEMATOCRIT 44.2 % (34.2-44.1); HEMOGLOBIN 14.6 g/dL (12.0-16.0); LYMPHOCYTES # (AUTO) 3.1 (1.0-3.2); LYMPHOCYTES % 38.6 % (18.0-39.1); MEAN CORPUSCULAR HEMOGLOBIN 31.5 pg (28-32); MEAN CORPUSCULAR VOLUME 95.3 fL (81-99); MONOCYTES # (AUTO) 0.5 (0.2-0.8); MONOCYTES % 6.1 % (4.4-11.3); NEUTROPHILS # (AUTO) 4.2 (2.1-6.9); NEUTROPHILS % 52.5 % (38.7-80.0); PLATELET COUNT 177 x10e3/uL (140-360); RED BLOOD COUNT 4.64 x10e6/uL (3.6-5.1); RED CELL DISTRIBUTION WIDTH 12.4 % (11.7-14.4)
[2021-09-01 00:30] LABS: ALBUMIN 3.7 g/dL (3.5-5.0); ANION GAP 18.4 mmol/L (8-16); CALCIUM 9.8 mg/dL (8.4-10.2); CREATININE, SERUM 0.75 mg/dL (0.57-1.11); POTASSIUM 4.4 mmol/L (3.5-5.1)
[2021-09-01 00:37] LABS: CREATINE KINASE MB 1.7 ng/mL (0-5.0)
[2021-09-01 03:26] LABS: CREATINE KINASE MB 0.8 ng/mL (0-5.0)
[2021-09-01] MEDS ORDERED: Morphine 4mg INJECTION 4 MG/ML INJ IV PRN (03:45)
[2021-09-01] MEDS ORDERED: ONDANSETRON HCL INJ 2MG/ML 2ML 2 MG/ML VIAL IV PRN (03:45)
== END 2021-09-01 09:18 | disposition home or self-care (01) ==
LOC: ER 23:51 → ERHOLD 09-01 03:41
PROVIDERS: ADMIT Internal Medicine; ATTEND Internal Medicine
DX: R07.89 Other chest pain (principal); K21.9 Gastro-esophageal reflux disease without esophagitis; M79.604 Pain in right leg; E11.9 Type 2 diabetes mellitus without complications; Z96.0 Presence of urogenital implants; Z90.49 Acquired absence of other specified parts of digestive tract; Z20.822 Contact with and (suspected) exposure to COVID-19; Z79.82 Long term (current) use of aspirin
CPT/HCPCS: 36415; 71045; 80053; 82550; 82553; 82948; 83880; 84484; 85025; 93005; 93306; 93971; 99284; G0378; U0002

== ENCOUNTER 2021-09-25 20:37 | Emergency (ER) | payer MEDICARE ==
[~2021-09-25] VITALS: Ht 154.9 cm; Wt 69.4 kg
[2021-09-25 23:58] LABS: BASOPHILS % 0.5 % (0.0-1.0); EOSINOPHILS # (AUTO) 0.2 (0.0-0.4); EOSINOPHILS % 2.2 % (0.0-6.0); HEMATOCRIT 43.7 % (34.2-44.1); HEMOGLOBIN 14.4 g/dL (12.0-16.0); LYMPHOCYTES # (AUTO) 2.9 (1.0-3.2); LYMPHOCYTES % 36.4 % (18.0-39.1); MEAN CORPUSCULAR HEMOGLOBIN 31.4 pg (28-32); MEAN CORPUSCULAR VOLUME 95.2 fL (81-99); MONOCYTES # (AUTO) 0.7 (0.2-0.8); MONOCYTES % 8.7 % (4.4-11.3); NEUTROPHILS # (AUTO) 4.1 (2.1-6.9); NEUTROPHILS % 51.8 % (38.7-80.0); PLATELET COUNT 196 x10e3/uL (140-360); RED BLOOD COUNT 4.59 x10e6/uL (3.6-5.1)
[2021-09-26 00:13] LABS: CALCIUM 9.6 mg/dL (8.4-10.2); CREATININE, SERUM 0.81 mg/dL (0.57-1.11)
[2021-09-26] MEDS ORDERED: IOPAMIDOL 370 MG/ML 100 ML INFUS..BTL INJ ONE (00:49)
[2021-09-26 01:47] VITALS: BP 148/69
== END 2021-09-26 01:52 | disposition home or self-care (01) ==
LOC: ER 20:50
DX: R22.32 Localized swelling, mass and lump, left upper limb (principal); E11.65 Type 2 diabetes mellitus with hyperglycemia; K21.9 Gastro-esophageal reflux disease without esophagitis; Z87.442 Personal history of urinary calculi
CPT/HCPCS: 36415; 71260; 80053; 85025; 99283; Q9967

== ENCOUNTER 2022-01-04 19:26 | Emergency (ER) | payer MEDICARE, OTHER ==
[~2022-01-04] VITALS: Ht 154.9 cm; Wt 69.4 kg
[2022-01-04] MEDS ORDERED: ACETAMINOPHEN/CODEINE 300MG - 30MG TAB PO ONE (20:00)
[2022-01-04] MEDS ORDERED: ACETAMINOPHEN/CODEINE 300MG - 30MG TAB ONE (20:03)
[2022-01-04] MEDS ORDERED: NAPROSYN500 MG PO (20:52)
[2022-01-04 21:44] VITALS: BP 154/79
== END 2022-01-04 21:06 | disposition home or self-care (01) ==
LOC: ER 19:33
DX: S00.83XA Contusion of other part of head, initial encounter (principal); S40.022A Contusion of left upper arm, initial encounter; S80.02XA Contusion of left knee, initial encounter; M79.642 Pain in left hand; M25.532 Pain in left wrist; W01.0XXA Fall on same level from slipping, tripping and stumbling without subsequent striking against object, initial encounter; Y93.01 Activity, walking, marching and hiking; Y99.0 Civilian activity done for income or pay; E11.9 Type 2 diabetes mellitus without complications; K21.9 Gastro-esophageal reflux disease without esophagitis
CPT/HCPCS: 70450; 72125; 99284

== ENCOUNTER 2024-01-08 18:36 | Emergency (ER) | payer MEDICARE ==
[~2024-01-08] VITALS: Ht 154.9 cm; Wt 67.6 kg
[~2024-01-08 18:36] MED LIST changes: +DICYCLOMINE HCL20 MG PO; +NAPROSYN500 MG PO; +ONDANSETRON ODT4 MG PO
[2024-01-08 20:10] LABS: BASOPHILS % 0.3 % (0.0-1.0); EOSINOPHILS # (AUTO) 0.3 (0.0-0.4); EOSINOPHILS % 2.8 % (0.0-6.0); HEMATOCRIT 45.1 % (34.2-44.1); HEMOGLOBIN 14.6 g/dL (12.0-16.0); LYMPHOCYTES # (AUTO) 3.5 (1.0-3.2); MEAN CORPUSCULAR HEMOGLOBIN 30.7 pg (28-32); MEAN CORPUSCULAR HGB CONC 32.4 g/dL (31-35); MEAN CORPUSCULAR VOLUME 94.9 fL (81-99); MONOCYTES # (AUTO) 0.7 (0.2-0.8); MONOCYTES % 6.1 % (4.4-11.3); NEUTROPHILS # (AUTO) 7.3 (2.1-6.9); NEUTROPHILS % 61.3 % (38.7-80.0); PLATELET COUNT 171 x10e3/uL (140-360); RED BLOOD COUNT 4.75 x10e6/uL (3.6-5.1); RED CELL DISTRIBUTION WIDTH 12.8 % (11.7-14.4); WHITE BLOOD COUNT 11.93 x10e3/uL (4.8-10.8)
[2024-01-08 20:28] LABS: STREPTOCOCCUS GRP A ANTIGEN NEGATIVE (NEGATIVE)
[2024-01-08 20:29] LABS: ALBUMIN 3.7 g/dL (3.5-5.0); ANION GAP 14.7 mmol/L (8-16); BILIRUBIN,TOTAL 0.8 mg/dL (0.2-1.2); CALCIUM 9.3 mg/dL (8.4-10.2); CREATININE, SERUM 0.79 mg/dL (0.57-1.11); POTASSIUM 3.7 mmol/L (3.5-5.1); TOTAL PROTEIN 7.5 g/dL (6.5-8.1)
[2024-01-08 20:29] LABS: BILIRUBIN,URINE NEGATIVE (NEGATIVE); CLARITY,URINE SL CLOUDY (CLEAR); COLOR,URINE YELLOW (YELLOW); GLUCOSE, URINE 1+ (NEGATIVE); KETONES,URINE TRACE (NEGATIVE); LEUKOCYTE ESTERASE ,URINE NEGATIVE (NEGATIVE); NITRITE,URINE NEGATIVE (NEGATIVE); PH,URINE 6.5 (5 - 7); PROTEIN,URINE DIPSTICK NEGATIVE (NEGATIVE); URINE UROBILINOGEN 0.2 mg/dL (0.2 - 1)
[2024-01-08 20:35] LABS: TROPONIN I 0.006 ng/mL (0-0.300)
[2024-01-08 20:38] LABS: EPITHELIAL CELLS,URINE FEW /LPF
[2024-01-08 20:52] LABS: INFLUENZAE A&B ANTIGEN (RAPID) NEGATIVE (NEGATIVE); RESPIRATORY SYNC. VIRUS NEGATIVE (NEGATIVE)
[2024-01-08] MEDS: Morphine 4mg INJECTION 4 MG/ML INJ IV STA (21:30)
[2024-01-08] MEDS: ONDANSETRON HCL INJ 2MG/ML 2ML 2 MG/ML VIAL IV STA (21:30)
[2024-01-08] MEDS: SODIUM CHLORIDE 0.9% 1000ML 1,000 ML IV STA (21:30)
[2024-01-08] MEDS: ACETAMINOPHEN 325 MG TAB PO ONE (21:41)
[2024-01-08 22:30] VITALS: PULSE 66; RESP 16; TEMP 98.2; O2SAT 96
== END 2024-01-08 22:38 | disposition home or self-care (01) ==
LOC: ER 19:21
DX: R50.9 Fever, unspecified (principal); J02.9 Acute pharyngitis, unspecified; R05.9 Cough, unspecified; R10.30 Lower abdominal pain, unspecified; E11.65 Type 2 diabetes mellitus with hyperglycemia; I10 Essential (primary) hypertension; K21.9 Gastro-esophageal reflux disease without esophagitis; Z11.52 Encounter for screening for COVID-19; R94.31 Abnormal electrocardiogram [ECG] [EKG]
CPT/HCPCS: 36415; 74177; 80053; 81001; 82550; 83518; 83690; 84484; 85025; 87070; 87400; 87420; 93005; 99284; J2270; J2405; J7030; U0002

== ENCOUNTER 2024-05-30 18:14 | Emergency (ER) | payer MEDICARE ==
[~2024-05-30] VITALS: Ht 154.9 cm; Wt 67.6 kg
[2024-05-30 20:01] LABS: INFLUENZA A AG NEGATIVE (NEGATIVE); INFLUENZA B AG NEGATIVE (NEGATIVE)
[2024-05-30 20:02] LABS: CORONAVIRUS COVID-19 AG NEGATIVE (NEGATIVE)
[2024-05-30 20:05] LABS: ALANINE AMINOTRANSFERASE 24 IU/L (0-55); ALBUMIN 3.6 g/dL (3.5-5.0); ALBUMIN/GLOBULIN RATIO 1.2 (0.8-2.0); ALKALINE PHOSPHATASE 68 IU/L (40-150); BILIRUBIN,TOTAL 0.5 mg/dL (0.2-1.2); BLOOD UREA NITROGEN 20 mg/dL (7-26); BUN/CREATININE RATIO 27 (6-25); CALCIUM 9.1 mg/dL (8.4-10.2); CARBON DIOXIDE 19 mmol/L (22-29); CHLORIDE 108 mmol/L (98-107); CREATINE KINASE 38 IU/L (29-168); CREATININE, SERUM 0.75 mg/dL (0.57-1.11); EST GLOMERULAR FILTRATION RATE 81 ML/MIN (>=60); GLUCOSE 182 mg/dL (74-118); SODIUM 139 mmol/L (136-145); TOTAL PROTEIN 6.6 g/dL (6.5-8.1)
[2024-05-30 20:12] LABS: TROPONIN I < 0.001 ng/mL (0-0.300)
[2024-05-30 20:30] LABS: BASOPHILS % 0.4 % (0.0-1.0); EOSINOPHILS # (AUTO) 0.3 (0.0-0.4); EOSINOPHILS % 3.6 % (0.0-6.0); HEMATOCRIT 40.3 % (34.2-44.1); HEMOGLOBIN 14.1 g/dL (12.0-16.0); LYMPHOCYTES % 42.6 % (18.0-39.1); MEAN CORPUSCULAR HEMOGLOBIN 31.2 pg (28-32); MEAN CORPUSCULAR VOLUME 89.2 fL (81-99); MONOCYTES # (AUTO) 0.5 (0.2-0.8); MONOCYTES % 7.1 % (4.4-11.3); NEUTROPHILS # (AUTO) 3.2 (2.1-6.9); NEUTROPHILS % 45.6 % (38.7-80.0); PLATELET COUNT 159 x10e3/uL (140-360); RED BLOOD COUNT 4.52 x10e6/uL (3.6-5.1); RED CELL DISTRIBUTION WIDTH 13.2 % (11.7-14.4); WHITE BLOOD COUNT 7.02 x10e3/uL (4.8-10.8)
[2024-05-30] MEDS: KETOROLAC TROMETHAMINE 30 MG/ML VIAL IV STA (20:30)
[2024-05-30] MEDS ORDERED: ULTRAM 50MG50 MG PO (21:23)
[2024-05-30 21:55] VITALS: PULSE 56; RESP 17; TEMP 97.7; O2SAT 97
== END 2024-05-30 22:00 | disposition home or self-care (01) ==
LOC: ER 18:30
DX: M25.512 Pain in left shoulder (principal); R07.89 Other chest pain; M79.18 Myalgia, other site; I10 Essential (primary) hypertension; E11.65 Type 2 diabetes mellitus with hyperglycemia; K21.9 Gastro-esophageal reflux disease without esophagitis; Z87.442 Personal history of urinary calculi
CPT/HCPCS: 36415; 71045; 80053; 82550; 83690; 83880; 84484; 85025; 87428; 93005; 99284; J1885